=== PATIENT | female | born 1975 | race Caucasian/White ===

== ENCOUNTER 2022-03-19 15:11 | Outpatient (CLI) | payer OTHER, SELFPAY ==
--- NOTE | ~2022-03-19 | MM_ITS ---
EXAMINATION: MM screening bell BI w froylan HISTORY: Screening mammogram TECHNIQUE: Craniocaudal and mediolateral oblique 3-D tomosynthesis images were obtained and synthetic 2-D images were generated. CAD analysis was submitted and interpreted. COMPARISON: No prior mammogram is available for comparison at this institution. BREAST PARENCHYMAL COMPOSITION: The breasts are heterogeneously dense, which may obscure small masses . FINDINGS: There is no suspicious mass, calcification, or architectural distortion to suggest malignan cy in either breast. IMPRESSION: 1. No mammographic evidence of malignancy. 2. Recommend routine screening mammography in one year. BI-RADS Category 1: Negative Reviewed, dictated and finalized at location A.
== END 2022-03-19 15:12 | disposition home or self-care (01) ==
PROVIDERS: PCP Emergency Medicine; Visit Provider Emergency Medicine
DX: Z12.31 Encounter for screening mammogram for malignant neoplasm of breast (principal)
CPT/HCPCS: 77063; 77067

== ENCOUNTER 2024-01-16 10:33 | Outpatient (CLI) | payer OTHER, SELFPAY ==
--- NOTE | ~2024-01-16 | MMUS_ITS ---
EXAMINATION: MM diagnostic [facility] BI w froylan, US breast BI complete HISTORY: Diffuse breast tenderness TECHNIQUE: Additional 3-D tomosynthesis images of the breasts were performed and synthetic 2-D images were generated. CAD analysis was submitted and interpreted. High resolution bilateral complete breas t ultrasound was performed. COMPARISON: 03/19/2022 BREAST PARENCHYMAL COMPOSITION: Dense: The breasts are extremely dense, which lowers the sensitivity of mammography. FINDINGS: MAMMOGRAPHIC FINDINGS: There are no suspicious masses, calcifications or architectural distortion in either breast to sugges t malignancy. ULTRASOUND: Complete bilateral US of all 4 quadrants of the breasts and retroareolar region was reviewed. Right breast: Normal heterogeneous echotexture without focal mass. Left breast: At 9:00, 7 cm from the nipple there is a irregular shaped hypoechoic mass with some angu lar margins measuring 10 x 6 x 6 mm. There is mixed posterior attenuation. There is marginal vascular ity. IMPRESSION: 1. Irregular shaped left breast mass at 9:00, 7 cm from the nipple. 2. Ultrasound-guided left breast biopsy recommended. BI-RADS CATEGORY 4-SUSPICIOUS ABNORMALITY Reviewed, dictated and finalized at location B. IMPRESSION: 1. Irregular shaped left breast mass at 9:00, 7 cm from the nipple. 2. Ultrasound-guided left breast biopsy recommended. BI-RADS CATEGORY 4-SUSPICIOUS ABNORMALITY
== END 2024-01-16 10:34 | disposition home or self-care (01) ==
LOC: ANHIMG 10:41
PROVIDERS: PCP Emergency Medicine; Visit Provider Nurse Practitioner Family
DX: N60.12 Diffuse cystic mastopathy of left breast (principal); N60.11 Diffuse cystic mastopathy of right breast; R92.8 Other abnormal and inconclusive findings on diagnostic imaging of breast
CPT/HCPCS: 76641; 77062; 77066; G0279

== ENCOUNTER 2024-02-17 06:35 | Outpatient (CLI) | payer OTHER, SELFPAY ==
--- NOTE | ~2024-02-17 | MR_ITS ---
MR breast BI wo/w con 02/17/2024 08:11 CDT INDICATION: Left breast mass seen on prior examination. TECHNIQUE: MRI of the breasts perform using standard protocol pre-and post IV contrast with the follo wing sequences: Axial T2 STIR, axial T1, axial vibrant T1 with fat suppression precontrast and multip hasic postcontrast. Cc of MultiHance administered intravenously. COMPARISON: Mammogram and ultrasound dated 01/16/2024 FINDINGS: There are no abnormalities on the precontrast sequences. There is minimal background parenc hymal enhancement. No enhancing lesions following contrast administration. No areas of enhancement meeting threshold criteria on CAD analysis. No evidence of signal abnormalities in the axillary or i nternal mammary node distributions. LEFT BREAST: No signal abnormalities on precontrast sequences. There is minimal background parenchym al enhancement. Postcontrast images demonstrate a mass in the lower inner quadrant of the left breast at approximately 8:00 posteriorly measuring 1.6 x 1.3 x 0.9 cm with slightly irregular margins and o shyam configuration. There is heterogeneous rapid washout enhancement with internal septation. This cor responds to the finding on recent ultrasound examination. There is a small adjacent satellite nodule measuring approximately 4 mm with rapid washout enhancement which may represent an involved lymph nod e. IMPRESSION: 1: Right breast: Negative. No evidence of malignancy. BI-RADS category 1. Recommend annual mammo graphy follow-up. 2: Left breast: Suspicious left breast masses, dominant mass measuring 1.6 cm at 8:00 posteriorly wi th rapid washout enhancement. Ultrasound-guided left breast biopsy recommended. BI-RADS CATEGORY 4-SUSPICIOUS ABNORMALITY Reviewed, dictated and finalized at location B. IMPRESSION: 1: Right breast: Negative. No evidence of malignancy. BI-RADS category 1. Recommend annual mammography follow-up. 2: Left breast: Suspicious left breast masses, dominant mass measuring 1.6 cm at 8:00 posteriorly with rapid washout enhancement. Ultrasound-guided left rell st biopsy recommended. BI-RADS CATEGORY 4-SUSPICIOUS ABNORMALITY
== END 2024-02-17 06:36 | disposition home or self-care (01) ==
PROVIDERS: Visit Provider Surgery
DX: R92.8 Other abnormal and inconclusive findings on diagnostic imaging of breast (principal); R92.343 Mammographic extreme density, bilateral breasts; Z12.39 Encounter for other screening for malignant neoplasm of breast; N63.20 Unspecified lump in the left breast, unspecified quadrant
CPT/HCPCS: 77049; A9577; C8908

== ENCOUNTER 2024-03-24 07:55 | Outpatient (CLI) | payer OTHER, SELFPAY ==
--- NOTE | ~2024-03-24 | MMUS_ITS ---
MM post biopsy diagnostic LT, US breast biopsy LT w image EXAMINATION: US GUIDED NEEDLE BIOPSY WITH VACUUM ASSISTANCE DATE: 03/24/2024 10:36 CDT INDICATION: Left breast mass seen on prior examination. Ultrasound-guided core biopsy is requested t o evaluate for malignancy. BREAST PARENCHYMAL COMPOSITION: Dense: The breasts are extremely dense, which lowers the sensitivity of mammography. TECHNIQUE AND FINDINGS: The risks and potential benefits of the procedure were discussed with the patient, and written inform ed consent was obtained. After sterile preparation of the left breast, 1% lidocaine was utilized for local anesthesia. 1% lidocaine with epinephrine was used for deep anesthesia. A 10G vacuum-assisted biopsy gun needle was advanced through to the outer edge of the region of inter est from a medial approach utilizing sonographic guidance. A total of 4 tissue core samples were obt ained through the lesion. An Inrad tissue marker clip was then placed at the biopsy site. Hemostasis was achieved. The patient tolerated procedure well and there was no evidence of immediate complication. The patien t was given verbal instructions partly is from the department. Left/right breast mammograms to [facility] ent tissue marker clip placement. The tissue samples were submitted to surgical pathology for histolo gic analysis. IMPRESSION: 1. Successful ultrasound-guided vacuum-assisted biopsy of left breast mass. Post biopsy mammogram do es not demonstrate the tissue marker, possibly due to posterior medial location of the mass near the chest wall or to possible nondisplaced deployment of the tissue marker. Please refer to pathology rep ort for histologic analysis. Reviewed, dictated and finalized at location B. IMPRESSION: 1. Successful ultrasound-guided vacuum-assisted biopsy of left breast mass. Po st biopsy mammogram does not demonstrate the tissue marker, possibly due to pos terior medial location of the mass near the chest wall or to possible nondispla piero deployment of the tissue marker. Please refer to pathology report for histo logic analysis.
== END 2024-03-24 07:56 | disposition home or self-care (01) ==
PROVIDERS: Visit Provider Physician Assistant Surgical
DX: C50.912 Malignant neoplasm of unspecified site of left female breast (principal); R92.343 Mammographic extreme density, bilateral breasts; R92.8 Other abnormal and inconclusive findings on diagnostic imaging of breast
CPT/HCPCS: 19083; 77065; 88305; 88360; A4648

== ENCOUNTER 2024-04-09 09:32 | Outpatient (CLI) | payer OTHER, SELFPAY ==
--- NOTE | ~2024-04-09 | US_ITS ---
US breast LT limited 04/09/2024 09:59 Indication: Intraductal carcinoma of the left breast. Postbiopsy bleeding. Procedure: High-resolution Limited ultrasound of the left breast Comparison: Ultrasound dated 03/24/2024 Findings: In the area of previous biopsy at 9:00, 7 cm from the nipple there is a heterogeneous fluid collection measuring 2.7 x 1.9 x 1.2 cm, likely postbiopsy hematoma/seroma. There are are low level internal echoes. No internal vascularity. Impression: 1: Minimally complicated fluid collection left breast at 9:00, 7 cm from the nipple measuring 2.7 x 1 .5 x 1.2 cm, likely hematoma/seroma. BI-RADS CATEGORY 3-PROBABLY BENIGN FINDING RECOMMENDATION: Limited follow-up ultrasound in 3 months recommended. Reviewed, dictated and finalized at location B. Impression: 1: Minimally complicated fluid collection left breast at 9:00, 7 cm from the ni pple measuring 2.7 x 1.5 x 1.2 cm, likely hematoma/seroma. BI-RADS CATEGORY 3-PROBABLY BENIGN FINDING RECOMMENDATION: Limited follow-up ultrasound in 3 months recommended.
== END 2024-04-09 09:33 | disposition home or self-care (01) ==
LOC: ANHIMG 09:34
PROVIDERS: Visit Provider Surgery
DX: C50.912 Malignant neoplasm of unspecified site of left female breast (principal); R92.8 Other abnormal and inconclusive findings on diagnostic imaging of breast
CPT/HCPCS: 76642

== ENCOUNTER 2024-04-23 07:26 | Outpatient (CLI) | payer OTHER, SELFPAY | END 2024-04-23 07:27 | disposition home or self-care (01) | LOC: ANHSURGERY 07:31 | PROVIDERS: Visit Provider Surgery | DX: Z01.818 Encounter for other preprocedural examination (principal); D05.12 Intraductal carcinoma in situ of left breast | CPT/HCPCS: 36415; 86850; 86900; 86901 ==

== ENCOUNTER 2024-04-27 17:38 | Observation (INO) | payer OTHER, SELFPAY ==
[2024-04-21 13:15] VITALS: BMI 20.1
--- NOTE | 2024-04-21 13:22 | PC.NURSE ---
Addendum entered by Racheal Magallanes RN 04/21/24 13:36: PT INFORMED: NO FOOD AFTER MIDNIGHT, UP TO 20 OUNCES OF CLEAR LIQUIDS FROM MIDNIGHT UNTIL 5AM. Original Note: Report to the Outpatient Waiting Room, entrance under the green pavilion located off [facility], at time 1100__ on date _04/27/24_. Planned Procedure Time: _1300.? Time changes happen often and if your time is changed the preop area will call you the afternoon before. - You and your visitor will be asked to self-screen and do not enter if you have any COVID symptoms. Please call surgeon if you need to reschedule. - A mask is optional within the hospital at this time. Patients may have clear liquids (water, carbonated beverages, clear teas, apple juice) until 3 hours prior to surgery with a maximum of 20 ounces. - No food from midnight until time of surgery and no smoking - Infants may have breast milk until 4 hours before surgery, infant formula 6 hours prior to surgery. - Children will be allowed to drink immediately following surgery.? If applicable, please bring a bottle or sippy cup to assist with drinking. Juice, water, soda, and popsicles are readily available.? For infants on formula, please bring formula the day of surgery.? Pacifiers are allowed. Take only the following medications with a SIP of water on the morning of surgery: ___NONE DO NOT STOP ANY OF YOUR OTHER PRESCRIPTION MEDICATIONS PRIOR TO SURGERY EXCEPT THE FOLLOWING Medications to discontinue per physician MULTIVITAMIN Date to take last dose 04/24/24 Please no make-up, nail swedish, hairspray, perfume, deodorant, or body powder the day of surgery.? No jewelry (including any body piercings) or valuables the day of surgery, leave them at home.? Please take a shower or bath the night before, or the morning of, surgery with an antibacterial soap.? Wear comfortable, loose fitting clothing.? Children are encouraged to wear pajamas. - Jewelry must be removed prior to entering the operating room.? Rings and piercings that are not removed may be cut off. - The hospital will not accept responsibility for valuables.? - Please leave all valuables, including medications, at home the day of surgery. If you are going home after surgery, a licensed cart driver must drive you home.? - NO public transportation without another adult if you receive anesthesia. - We recommend that an adult stay with you for 24 hours following discharge. - We also recommend that you do not drive, make important decision, drink alcoholic beverages, or take any drugs that were not prescribed by your health care provider for at least 24 hours after your discharge time. For Pediatric surgeries, we recommend two adults accompany the child home. Follow any additional instructions given to you from your surgeon. Telephone instructions given to ___PATIENT_and asked if any additional questions and then verbalized understanding. Patient advised to call surgeon office or pre surgery nurse liaison [phone] if any additional questions.
--- NOTE | 2024-04-26 19:42 | P.PNAN_ITS ---
Anes - Initial Pre Proc Eval Procedure: Operation Date: 04/27/24 13:00 Proposed Procedures p Left Total Mastectomy, Right Prophylactic Total Mastectomy, Left [facility] Lymph Node Biopsy with Lymphoseek, Possible Methylene Blue Injection, - Sharonda Padilla MD s Bilateral Breast Immediate Prepectoral Reconstruction with Silicone Implants and Acellular Dermal Matrix, Possible Tissue Wait Staff Placement - Deandre Garcia MD Date/Time: 04/26/24 19:42 Surgeon: Sharonda Padilla MD Pre Op Diagnosis: intraductal CA insitu left breast Patient Data Age: 48 Gender: F Height: 1.73 m Weight: 60 kg Allergies Allergy/AdvReac Type Severity Reaction Status Date / Time No Known Allergies Allergy Unknown Unverified 04/21/24 13:14 Home Medications Medication Instructions Recorded Confirmed Type multivitamin (Daily Multi-Vitamin 1 tablet PO DAILY 12/10/23 04/21/24 History tablet) spironolactone 25 mg tablet 25 mg PO DAILY 12/10/23 04/21/24 History cephalexin 500 mg capsule 500 mg PO Q8H #21 caps 04/27/24 Rx hydrocodone 5 mg-acetaminophen 325 1 tablet PO Q6H PRN pain #16 tabs 04/27/24 Rx mg tablet Patient hx anesthesia problems: none Family hx anesthesia problems: none Results Review: All pre-operative results and documents have been reviewed as part of the pre- operative evaluation. [facility] Past Medical History Medical History Allergies Seasonal allergies Surgical History Surgical History H/O shoulder surgery No significant past surgical history Family History Family History Grandparent Breast cancer Social History Social History Social History: Caffeine- coffee/diet soda Smoking status: Never smoker Alcohol intake: current Drinks per week: 2 Alcohol use details: occasionally Substance use: never Substance use type: does not use Do You Feel Safe in your Home?: Yes Lack of Transportation: No Lack of Food: Never True Current Housing: I Have Housing Concerned About Future Housing: No Difficulty Paying Gas/Electric Bills: No Difficulty Paying for Meds: No Currently Unemployed: No Education: High School Diploma/GED Difficulty w/ Childcare or Family Care: No Living arrangements: with family Venita Alcaraz Final PreProcedure Day of Procedure 04/26/24 19:42 Results Review: All pre-operative results and documents have been reviewed as part of the pre- operative evaluation. Informed Consent: The patient's anesthetic plan and its attendant risks and benefits were discussed with the patient/family/POA. Questions were solicited and answers provided to the satisfaction of the patient/family/POA.
[2024-04-27] VITALS (10 sets, daily range): BP systolic 98–125; BP diastolic 50–71; PULSE 73–88; RESP 10–21; TEMP 36.8–37.3; O2SAT 92–100; BMI 20.6
--- NOTE | ~2024-04-27 | NM_ITS ---
EXAMINATION: NM sentinel node inject only DATE: 04/27/2024 12:15 INDICATION: Left breast cancer TECHNIQUE: 1.034 mCi Tc-99m filtered sulfur colloid was injected in four aliquots in the anterior lydia ast near the areola. No images were obtained. IMPRESSION: 1. Left breast sentinel lymph node radiopharmaceutical injection. Reviewed, dictated and finalized at location A.
[2024-04-27] MEDS: LIDOCAINE/PRILOCAINE CREAM 2.5-2.5% TUBE 1 EACH TOPICAL (11:00)
--- NOTE | 2024-04-27 11:06 | WPDHPUPDATE1 ---
History and Physical Update Update Date/Time: 04/27/24 11:06 - Left total mastectomy, right prophylactic mastectomy, left sentinel lymph node biopsy with Lymphoseek and possible methylene blue injection, as well as immediate reconstruction with Plastic surgery History and Physical has been reviewed, including an updated exam of the patient. There are NO changes in the patient's condition. Risks, benefits, and alternatives have been discussed and questions answered. Patient agrees to proceed with procedure.
[2024-04-27 11:15] LABS: BEDSIDEPREGUCG Negative (Negative)
[2024-04-27] MEDS: LACTATED RINGERS 1,000 ML 30 ML IV CONT ×2 (11:15→15:48)
[2024-04-27] MEDS: ACETAMINOPHEN 500 MG TABLET 1000 MG PO (11:24)
--- NOTE | 2024-04-27 11:26 | WPDHPUPDATE1 ---
History and Physical Update Update Date/Time: 04/27/24 11:26 Patient seen and examined in pre-operative holding area. No interval change in medical history or symptoms. Patient remembers previous discussion of benefits and alternatives to procedure. Continues to desire to proceed with bilateral breast reconstruction with silicone implants and acellular dermal matrix at time of mastectomy possible tissue accountant property placement . I reviewed the risks including but not limited to bleeding ,infection, asymmetry, undesireable cosmetic appearance, partial/total skin loss, no change or worsening of symptoms, change in sensation, device failure, capsular contracture. I discussed the possible use of assistants and their level of participation in the case. Patient stated understanding and signed the consent form wishing to proceed
--- NOTE | 2024-04-27 11:28 | W.PM.PROC2 ---
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 She was taken back to the operating room and placed on the table in the supine position. Time-out was performed with Anesthesia, surgeons, and staff agreeing on patient's name, site, and surgery to be performed. SCDs were placed on the lower extremities and inflated. Antibiotics were given IV. After general anesthesia was administered the breasts were prepped and draped in the usual sterile fashion. First we took our attention to the right breast where I designed an ellipsoid incision encompassing the nipple-areolar complex extending medially and laterally. Care was then given to Dr. Padilla proceeded with performing the right mastectomy with my assistance and dictated separately. After the mastectomy was completed I irrigated with antibiotic irrigation and achieved hemostasis with Bovie cautery. I proceeded with sewing in a piece of large contoured AlloDerm along the inframammary fold and anterior axillary line with 2-0 Vicryl suture. Various sizes were attempted but the 275 cc moderate profile Sizer appeared to be the best option for the patient's reconstructive goals. A 10 flat JASPER was placed along the inframammary fold and an on Q pump catheter was placed along the superior aspect of the right breast cavity. I irrigated again with antibiotic irrigation the skin was prepped with Betadine and fresh towels were placed down. We changed our gloves and rinse instruments an antibiotic irrigation after removing the Sizer. I then proceeded with taking a Natrelle SCM-275 implant serial [id number] directly from the package after rinsing it in antibiotic irrigation and placing it in the right breast pocket beneath the AlloDerm in appropriate position and then closed the dermis with 3-0 Vicryl suture. 4-0 Monocryl was used for subcuticular closure. The skin flaps appeared viable with good cap refill. 7 cc of 1% lidocaine with epinephrine and 0.5% Marcaine plain were injected to the right breast on Q catheter for loading dose. The drain was hooked to bulb suction. Next attention was taken to the left breast where similar incision pattern was designed. Dr. Padilla proceeded with performing left mastectomy with my assistance as well and dictated separately. After the mastectomy was completed Dr. Padilla performed the left axillary lymph node biopsy. I irrigated with antibiotic irrigation and achieved hemostasis with bovie cautery. I proceeded with sewing in a another piece of large contoured perforated AlloDerm along the inframammary fold and anterior axillary line with 2-0 Vicryl suture. The 275cc sizer was placed noting reasonable symmetry between the reconstructed right breast. The Sizer was removed. A 10 Portuguese JASPER was placed along the inframammary fold. The on Q pump catheter was placed along the superior aspect of the left breast pocket. I irrigated once more with antibiotic irrigation. The skin was prepped with Betadine and fresh towels were placed down. We changed our gloves and rinsed instruments and antibiotic irrigation. I proceeded with taking another Natrelle SCM-275 implant serial [id number] directly from the package after rinsing it in antibiotic irrigation and placing in the left breast pocket under the AlloDerm in its appropriate orientation. The skin was then closed with 3-0 Vicryl for dermis and 4-0 Monocryl for subcuticular closure. 7 cc of 1% lidocaine with epinephrine and 0.5% Marcaine plain was injected through the on Q catheter for initial loading dose and the drain was hooked to bulb suction. The sk
--- NOTE | 2024-04-27 12:15 | WPDANESEPPF ---
Anes - Initial Pre Proc Eval Procedure: Operation Date: 04/27/24 13:00 Proposed Procedures p Left Total Mastectomy, Right Prophylactic Total Mastectomy, Left [place] Lymph Node Biopsy with Lymphoseek, Possible Methylene Blue Injection, - Sharonda Padilla MD s Bilateral Breast Immediate Prepectoral Reconstruction with Silicone Implants and Acellular Dermal Matrix, Possible Tissue Quarry Supervisor Dimension Stone Placement - Deandre Garcia MD Date/Time: 04/27/24 12:15 Surgeon: Sharonda Padilla MD Pre Op Diagnosis: intraductal CA insitu left breast Patient Data Age: 48 Gender: F Height: 1.73 m Weight: 61.6 kg Last Vital Signs Temp 36.8 C 04/27/24 11:09 Pulse 73 04/27/24 11:09 Resp 16 04/27/24 11:09 BP 123/62 04/27/24 11:09 Pulse Ox 98 04/27/24 11:09 O2 Del Method Room Air 04/27/24 11:09 Allergies Allergy/AdvReac Type Severity Reaction Status Date / Time No Known Allergies Allergy Unknown Unverified 04/21/24 13:14 Home Medications Medication Instructions Recorded Confirmed Type multivitamin (Daily Multi-Vitamin 1 tablet PO DAILY 12/10/23 04/21/24 History tablet) spironolactone 25 mg tablet 25 mg PO DAILY 12/10/23 04/21/24 History Laboratory Tests 04/27/24 11:09 POC Urine HCG, Qual Negative (Negative) Patient hx anesthesia problems: none Family hx anesthesia problems: none Results Review: All pre-operative results and documents have been reviewed as part of the pre-operative evaluation. [facility] Past Medical History Medical History Allergies Seasonal allergies Surgical History Surgical History H/O shoulder surgery No significant past surgical history Family History Family History Grandparent Breast cancer Social History Social History Social History: Caffeine- coffee/diet soda Smoking status: Never smoker Alcohol intake: current Drinks per week: 2 Alcohol use details: occasionally Substance use: never Substance use type: does not use Do You Feel Safe in your Home?: Yes Lack of Transportation: No Lack of Food: Never True Current Housing: I Have Housing Concerned About Future Housing: No Difficulty Paying Gas/Electric Bills: No Difficulty Paying for Meds: No Currently Unemployed: No Education: High School Diploma/GED Difficulty w/ Childcare or Family Care: No Living arrangements: with family Anes - Eval Final PreProcedure Day of Procedure 04/27/24 12:15 Patient weight: normal Heart: regular rate and rhythm Lungs: clear to auscultation Airway: Mallampati scale class II Neurological: alert and oriented Last oral intake: >/= 8 hours ASA classification: II Emergent: no Anesthetic plan: proceed Anesthesia type and monitoring: general Results Review: All pre-operative results and documents have been reviewed as part of the pre-operative evaluation. Informed Consent: The patient's anesthetic plan and its attendant risks and benefits were discussed with the patient/family/POA. Questions were solicited and answers provided to the satisfaction of the patient/family/POA.
--- NOTE | 2024-04-27 12:17 | WPDANESEPPF ---
Anes - Initial Pre Proc Eval Procedure: Operation Date: 04/27/24 13:00 Proposed Procedures p Left Total Mastectomy, Right Prophylactic Total Mastectomy, Left [place] Lymph Node Biopsy with Lymphoseek, Possible Methylene Blue Injection, - Sharonda Padilla MD s Bilateral Breast Immediate Prepectoral Reconstruction with Silicone Implants and Acellular Dermal Matrix, Possible Tissue Generation Technologist Placement - Deandre Garcia MD Date/Time: 04/27/24 12:17 Surgeon: Sharonda Padilla MD Pre Op Diagnosis: intraductal CA insitu left breast Patient Data Age: 48 Gender: F Height: 1.73 m Weight: 61.6 kg Last Vital Signs Temp 36.8 C 04/27/24 11:09 Pulse 73 04/27/24 11:09 Resp 16 04/27/24 11:09 BP 123/62 04/27/24 11:09 Pulse Ox 98 04/27/24 11:09 O2 Del Method Room Air 04/27/24 11:09 Allergies Allergy/AdvReac Type Severity Reaction Status Date / Time No Known Allergies Allergy Unknown Unverified 04/21/24 13:14 Home Medications Medication Instructions Recorded Confirmed Type multivitamin (Daily Multi-Vitamin 1 tablet PO DAILY 12/10/23 04/21/24 History tablet) spironolactone 25 mg tablet 25 mg PO DAILY 12/10/23 04/21/24 History Laboratory Tests 04/27/24 11:09 POC Urine HCG, Qual Negative (Negative) Patient hx anesthesia problems: none Family hx anesthesia problems: none Results Review: All pre-operative results and documents have been reviewed as part of the pre-operative evaluation. [facility] Past Medical History Medical History Allergies Seasonal allergies Surgical History Surgical History H/O shoulder surgery No significant past surgical history Family History Family History Grandparent Breast cancer Social History Social History Social History: Caffeine- coffee/diet soda Smoking status: Never smoker Alcohol intake: current Drinks per week: 2 Alcohol use details: occasionally Substance use: never Substance use type: does not use Do You Feel Safe in your Home?: Yes Lack of Transportation: No Lack of Food: Never True Current Housing: I Have Housing Concerned About Future Housing: No Difficulty Paying Gas/Electric Bills: No Difficulty Paying for Meds: No Currently Unemployed: No Education: High School Diploma/GED Difficulty w/ Childcare or Family Care: No Living arrangements: with family Anes - Eval Final PreProcedure Day of Procedure 04/27/24 12:17 Results Review: All pre-operative results and documents have been reviewed as part of the pre-operative evaluation. Informed Consent: The patient's anesthetic plan and its attendant risks and benefits were discussed with the patient/family/POA. Questions were solicited and answers provided to the satisfaction of the patient/family/POA.
[2024-04-27] MEDS: ceFAZolin 2 GM/D5W 50 ML 2 GM/50 ML BAG IVPB (12:33)
[2024-04-27] MEDS: NACL 0.9% IRRIG POUR BOTTLE 1,000 ML, GENTAMICIN SULFATE INJ 160 MG, ceFAZolin 2 GM IRRIGATION (13:01)
[2024-04-27] MEDS: BUPivacaine 0.5% ON-Q PUMP 335 ML INTRADERM (13:03)
[2024-04-27] MEDS: BUPivacaine HCL 0.5% 10 ML AMP 20 ML INFILTRATE (13:04)
[2024-04-27] MEDS: LIDO 1%/EPINEPHRINE 1:100,000 50 ML VIAL 20 ML INFILTRATE (13:05)
--- NOTE | 2024-04-27 15:42 | W.PM.PROC2 ---
Procedure Note - Detailed Date of Procedure 04/27/24 Pre-op Diagnosis Left breast IDC, ER+, AL+, HER2 negative Post-op Diagnosis Same Procedure Performed 1. Left total mastectomy 2. Right prophylactic total mastectomy 3. Left axillary lymph node biopsy Surgeon Sharonda Padilla MD Director Of Clinical Education Erma Irby PA-C Anesthesia General Description of Procedure Patient was taken to Nuclear Medicine, for lymphoseek injection which was performed by the Radiologist. She was then brought to the operating room suite. She was placed supine on the operating table sequential compression devices were applied. General endotracheal anesthesia was induced without difficulty. The bilateral chest area were prepped and draped in a sterile fashion. Attention was then turned to the right prophylactic side. Dr. Garcia had already previously marked incisions which included an elliptical incision encompassing the nipple-areolar complex, and dissection was then carried out in the thin areolar tissue between the subcutaneous and the breast tissue, superiorly to the? inferior border of the clavicle, medial to the lateral aspect of the sternal border, laterally to the latissimus dorsi, and inferior to the inframammary fold down to the muscle. The? breast tissue along with the pectoralis fascia was then carefully dissected off the pectoralis muscle posteriorly.? Once the entire breast was excised, it was oriented with a short stitch superior and a long stitch lateral and sent to pathology as a fresh specimen. The cavity was irrigated and hemostasis was assured. Attention was then turned to the left axilla. The Neoprobe was used to scan the axilla for an area of high radioactivity. A small incision was made overlying this area, and dissection was carried down through the subcutaneous tissue and the clavipectoral fascia was opened. Although I was able to identify an area of high radioactivity, no lymph node tissue was found in the this area. There were no identifiable palpable lymph nodes in this area. Decision was then made to proceed with the mastectomy portion of the case and search for the lymph node from the mastectomy incision. Attention was then turned to the left breast. A similar elliptical incision was made encompassing the nipple areola complex and dissection was carried down through the subcutaneous tissue into the breast tissue. Dissection was then performed in the thin areolar tissue between the subcutaneous and the breast tissue, superiorly to the? inferior border of the clavicle, medial to the lateral aspect of the sternal border, laterally to the latissimus dorsi, and inferior to the inframammary fold down to the muscle. The? breast tissue along with the pectoralis fascia was then carefully dissected off the pectoralis muscle posteriorly.?Once the entire breast was excised, it was oriented with a short stitch superior and a long stitch lateral and sent to pathology as a fresh specimen. The cavity was irrigated and hemostasis was assured. The Neoprobe was again used to scan the axilla from the mastectomy incision and no areas of high radioactivity was identified at this time, indicating that likely the node was removed with the mastectomy/breast specimen. The axillary wound was closely inspected for any abnormal lymph nodes, and again none was identified. A small palpable soft nodule was noted at the area of the original high radioactivity, possibly representing a very small lymph node, and this was excised and sent to pathology as permanent specimen. The wound was irrigated with saline hemostasis was assured.The case was then turned over to Dr. Garcia for immediate reconstruction with bilateral silicone implants, please refer to his procedure note for further details. All needles, instruments, and sponge counts were correct as reported by the operating room staff. Patient tolerated the procedure well with no immediate complications. Erma Irby PA-C was presented and ass
[2024-04-27] MEDS: fentaNYL CITRATE INJ (*CRX) 100 MCG/2 ML VIAL 25 MCG IV PUSH ×2 (16:15→16:33)
[2024-04-27] MEDS: ONDANSETRON INJ 4 MG/2 ML VIAL IV PUSH (16:34)
[2024-04-27] MEDS: diphenhydrAMINE HCl INJ 50 MG/ML VIAL 12.5 MG IV PUSH (16:42)
--- NOTE | 2024-04-27 19:24 | OBPPTRN ---
1757 Patient transferred to post room #[id number] via stretcher. Support person present. Oriented to unit, room, information board, admission packet and security measures. Patient verbalizes understanding.
[2024-04-27] MEDS: DOCUSATE SODIUM 100 MG CAPSULE PO (21:07)
[2024-04-27] MEDS: LACTATED RINGERS 1,000 ML 100 ML IV CONT (21:08)
[2024-04-27] MEDS: CEPHALEXIN 500 MG CAPSULE PO (21:08)
[2024-04-27] MEDS: ACETAMINOPHEN 325 MG TABLET 650 MG PO (21:13)
[2024-04-28 03:40] VITALS: BP 89/52; PULSE 75; RESP 20; TEMP 37; O2SAT 99
[2024-04-28] MEDS: ACETAMINOPHEN 325 MG TABLET 650 MG PO ×2 (03:40→09:53)
[2024-04-28] MEDS: HYDROcodone/acetaminophen (*CRX) 10-325 MG TABLET 1 TAB PO ×2 (03:48→08:45)
[2024-04-28 07:35] VITALS: BP 93/54; PULSE 70; RESP 18; TEMP 37.1; O2SAT 98
[2024-04-28] MEDS: DOCUSATE SODIUM 100 MG CAPSULE PO (08:45)
[2024-04-28] MEDS: CEPHALEXIN 500 MG CAPSULE PO (08:45)
[2024-04-28] MEDS: MULTIVITAMINS THERAPEUTIC TAB (*BKC) 1 TABLET PO (08:45)
--- NOTE | 2024-04-28 10:15 | PM.PNGS ---
Progress Note: A&P Assessment and Plan (1) Ductal carcinoma in situ (DCIS) of left breast: Code(s): D05.12 - Intraductal carcinoma in situ of left breast Status: Acute (2) Invasive ductal carcinoma of left breast: Code(s): C50.912 - Malignant neoplasm of unspecified site of left female breast Status: Acute Plan 48 y/o female with L breast IDC, ER+, MI+, HER2-, recovering well POD#1 s/p B TM with L SLNBx and B prepec silicone implant immediate reconstruction with ADM. reviewed impression and healing expectations. reviewed signs/symptoms of concern. reviewed dressing/medication/drain instructions. pt voiced understanding and agreement. Plan 1) PO pain Rx 2) cephalexin BID x 1 week 3) drain care 4) dc home 5) breast surg follow up 2 weeks 6) plas follow up 1 week Subjective Subjective Date/Time Seen: 04/28/24 7:55 Interval history: pt seen at bedside. no concerns overnight. pain well managed with PO med. Denies fever/chills, bleeding/redness, SOB, chest pain, BENOIT, N/V/D, dizziness, BLE pain, interval change in breast size. ambulating and voiding without issue. Exam Narrative: sitting comfortably in bed Const: General: cooperative, healthy appearing and comfortable Orientation/consciousness: patient oriented x3 Eyes: Other: sclera anicteric Chest: Other: surgical bra c/d/i, tegaderm/gauze dressing c/d/i. bilateral implants in place, symmetric medial border and IMF. mastectomy flaps wwp, cap refil <2 sec. drains maintaining neg pressure, minimal dark sanguinous drainage. on-q in place. Resp: Effort & Inspection: normal respiratory effort Cardio: Jugular venous distension: no JVD Rate: regular rate Rhythm: regular rhythm GI: GI Palp: No abdominal tenderness and Yes Soft to palpation Objective Data Vital Signs Vital Signs: Vital Signs - 24 hr 04/27/24 11:09 04/27/24 16:01 04/27/24 16:16 Temperature 36.8 C 36.9 C Pulse Rate 73 85 83 Respiratory Rate 16 10 L 15 Blood Pressure 123/62 117/58 L 120/58 L Pulse Oximetry 98 100 92 Oxygen Delivery Room Air Simple Face Mask Room Air Oxygen Flow Rate 10 04/27/24 16:31 04/27/24 16:45 04/27/24 17:00 Temperature Pulse Rate 88 87 82 Respiratory Rate 14 14 21 H Blood Pressure 120/57 L 124/57 L 125/57 L Pulse Oximetry 96 95 95 Oxygen Delivery Room Air Room Air Room Air Oxygen Flow Rate 04/27/24 17:15 04/27/24 17:30 04/27/24 18:16 Temperature 36.9 C Pulse Rate 82 85 86 Respiratory Rate 12 15 18 Blood Pressure 113/50 L 121/60 115/71 Pulse Oximetry 94 96 96 Oxygen Delivery Room Air Room Air Oxygen Flow Rate 04/27/24 23:21 04/28/24 03:40 04/28/24 07:35 Temperature 37.3 C 37.0 C 37.1 C Pulse Rate 81 75 70 Respiratory Rate 20 20 18 Blood Pressure 98/56 L 89/52 L 93/54 L Pulse Oximetry 99 99 98 Oxygen Delivery Oxygen Flow Rate 04/28/24 07:20 Temperature Pulse Rate Respiratory Rate Blood Pressure Pulse Oximetry Oxygen Delivery Room Air Oxygen Flow Rate Intake/Output Intake/Output: Intake & Output 04/25/24 04/26/24 04/27/24 04/28/24 23:59 23:59 23:59 23:59 Intake Total 500 240 Output Total 295 110 Balance 205 130 Meds/Results Medications: Active Medications Generic Name Dose Route Start Last Admin Trade Name Freq PRN Reason Stop Dose Admin Acetaminophen 650 mg 04/27/24 18:00 04/28/24 09:53 Acetaminophen 325 Mg Tablet PO 650 mg Q6HR REMY Administration Hydrocodone Bitart/Acetaminophen 1 tab 04/27/24 17:38 Hydrocodone/Acetaminophen (*Crx) 5-325 Mg Tablet PO Q4H PRN Pain Rated 4-6 Hydrocodone Bitart/Acetaminophen 1 tab 04/27/24 17:38 04/28/24 08:45 Hydrocodone/Acetaminophen (*Crx) 10-325 Mg Tablet PO 1 tab Q4H PRN Administration Pain Rated 7-10 Cephalexin HCl 500 mg 04/27/24 21:00 04/28/24 08:45 Cephalexin 500 Mg Capsule PO 500 mg Q12HR REMY Administration Diphenhydramine HCl 25 mg 04/11
== END 2024-04-28 11:35 | disposition home or self-care (01) ==
LOC: ANHOB2 17:45
PROVIDERS: Plastic Surgery; Admitting Provider Surgery; Visit Provider Surgery
PROC: (CPT 19303; principal; 2024-04-27 13:00)
PROC: (CPT 19340; 2024-04-27 13:00)
DX: D05.12 Intraductal carcinoma in situ of left breast (principal); Z17.0 Estrogen receptor positive status [ER+]
CPT/HCPCS: 19303; 19340; 15777; 38525; 36415; 38792; 86850; 86900; 86901; 88307; A9270; A9520; G0378; J0665; J0690; J1100; J1170; J1200; J1580; J2250; J2405; J2704; J3010; J7120; Q4116; Q9968

== ENCOUNTER 2024-08-27 08:14 | Outpatient (CLI) | payer OTHER, SELFPAY ==
--- NOTE | ~2024-08-27 | US_ITS ---
US breast BI limited 08/27/2024 09:02 Indication: Diffuse cystic mastopathy of the right breast. Procedure: Complete bilateral breast ultrasound including all 4 quadrants in the subareolar locations Comparison: Comparison to multiple prior studies sequentially, with oldest reviewed study dated 04/2022. Findings: Right breast: At 9-10:00 in the area of palpable concern there is an oval shadowing hypoechoic mass m easuring 1.5 cm. Left breast: At 12-2:00 in the area of palpable concern there is an oval hypoechoic 1.5 cm mass with posterior shadowing and parallel orientation. At 1-2:00 in the area of palpable concern there is an o shyam parallel oriented hypoechoic mass with shadowing measuring 1.5 cm. Impression: 1: Abnormal bilateral breast masses. 2: Recommend correlation with MRI of the breasts with contrast. BI-RADS CATEGORY 0 - INCOMPLETE STUDY, NEED ADDITIONAL IMAGING EVALUATION. Reviewed, dictated and finalized at location A. ENSATION SPECIALIST Impression: 1: Abnormal bilateral breast masses. 2: Recommend correlation with MRI of the breasts with contrast. BI-RADS CATEGORY 0 - INCOMPLETE STUDY, NEED ADDITIONAL IMAGING EVALUATION.
--- OUTSIDE RECORDS SUMMARY | 2024-09-02 05:26 | XMS_ITS ---
Care Plan - [facility] Created on: September 02, 2024 MARY SANTANA : 1975 Sex: Female Author Organization [facility] Address [address] [place] [phone] Phone Care Team Providers Care Craft Demonstrator Name Role Phone DAWIT NOYOLA, LAYLA Urias Unavailable [phone]
--- OUTSIDE RECORDS SUMMARY | 2024-09-02 05:26 | XMS_ITS ---
Author Organization [facility] Address [address] [place] [phone] Phone Care Team Providers Care Sql Manager Name Role Phone DAWIT NOYOLA, LAYLA Urias Unavailable [phone] Problems Includes: Active, inactive, and resolved Problems All Visits Onset Date Resolved Date Provider Condition S tatus Ovarian Cyst Left 01/29/2016 NISHANT MENDEZ RN [facility] Active Last Documented On 01/29/2016 11:08AM ; [facility] Note: Unchanged Plan of Treatment Findings Encounter Date Ordered Clinical summary pro vided to patient ENDOMETRIAL BIOPSY with NISHANT HOGAN RN [facility] 02/01/2016 Last Documented On 6 3:51PM ; [facility] Ordered Clinical summary pro vided to patient NEW [employer] SUPERVISOR EXAM with NISHANT HOGAN RN [facility] 01/24/2016 Last Documented On 6 2:16PM ; [facility] Instructions to patient Instructions for patient : B reast Self Exam discussed Last Documented On 8 10:58AM ; [facility] Instructions for patient : B reast Self Exam discussed Last Documented On 7 8:27AM ; [facility] Instructed to call if excess mamie bleeding or abdominal/pelvic pain Last Documented On 6 3:24PM ; [facility] Patient may take Motrin OTC PRN as directed Last Documented On 6 3:24PM ; [facility] Instructions for patient : B reast Self Exam discussed and technique reviewed Last Documented On 6 12:57PM ; [facility] Instructions for patient : p atient is to keep a menstrual diary to help with further evaluation and treatment Last Documented On 6 2:12PM ; [facility] Instructions for patient ER if bleeding through reg. sized pad/tampon < 1 hour Last Documented On 6 2:12PM ; [facility] Instructions for patient ER if dizzy, vomiting or light-headed due to heavy bleeding Last Documented On 6 2:12PM ; [facility] Instructed to call if excess mamie bleeding or abdominal/pelvic pain Last Documented On 6 12:57PM ; [facility] Recommend diet and exercise at least 30 min three times per week Last Documented On 6 12:57PM ; [facility] Education and Decision Aids were provided during visit for: Patient education : Last Documented On 8 10:58AM ; [facility] Patient counseling : Use of oral contraceptives discussed in detail including rare occurrence of heart attack, stroke, and leg clots. Patient understands that smoking increases the risk of serious side effects with any steroid-based contraceptive method Last Documented On 8 11:12AM ; [facility] STD screening offered and de clined Last Documented On 8 10:58AM ; [facility] Patient counseling : Use of oral contraceptives discussed in detail including rare occurrence of heart attack, stroke, and leg clots. Patient understands that smoking increases the risk of serious side effects with any steroid-based contraceptive method Last Documented On 7 8:38AM ; [facility] STD screening offered and de clined Last Documented On 7 8:27AM ; [facility] Patient counseling : Use of oral contraceptives discussed in detail including rare occurrence of heart attack, stroke, and leg clots. Patient understands that smoking increases the risk of serious side effects with any steroid-based contraceptive method Last Documented On 6 3:37PM ; [facility] Patient counseling : Use of oral contraceptives discussed in detail including rare occurrence of heart attack, stroke, and leg clots. Patient understands that smoking increases the risk of serious side effects with any steroid-based contraceptive method Last Documented On 6 3:50PM ; [facility] INFORMED CONSENT DISCUSSION: Endometrial biopsy was discussed in detail including discomfort, insufficient specimen with need to repeat test, and rare incidence of uterine perforation. Patient expressed understanding of the above and consented to the procedure Last Documented On 6 3:24PM ; [facility] Patient Education: Daily concha cium and vitamin D Last Documented On 6 12:57PM ; [facility] Assessments Includes: Assessments for all patient encounters Findings Encounter Date Routine pelvic exam [employer] SUPERVISOR EXAM with ANIYA FREEMAN MD 02/27/2018 Last Documented On 8 11:14AM ; [facility] Routine pelvic exam [employer] SUPERVISOR EXAM with ANIYA FREEMAN MD 02/17/2017 Last Documented On 7 8:39AM ; [facility] Menorrhagia MED CHECK with ANIYA FREEMAN MD 07/26/2016 Last Documented On 6 3:40PM ; [facility] Endometrial polyps CONSULTATION with ANIYA DE LOS SANTOS MD 02/22/2016 Last Documented On 6 3:50PM ; [facility] Menorrhagia CONSULTATION with AINYA FREEMAN MD 02/22/2016 Last Documented On 6 3:50PM ; [facility] Ovarian cyst CONSULTATION with ANIYA FREEMAN MD 02/22/2016 Last Documented On 6 3:50PM ; [facility] Menorrhagia ENDOMETRIAL BIOPSY with NISHANT HOGAN RN [facility] 02/01/2016 Last Documented On 6 3:51PM ; [facility] Cyst on the left ovary PELVIC W/TVT with NISHANT HOGAN RN [facility] 01/26/2016 Last Documented On 6 11:08AM ; [facility] Lump or mass in the right breast [employer]PER[employer] EXAM with NISHANT HOGAN RN [facility] 01/24/2016 Last Documented On 6 2:16PM ; [facility] Menorrhagia NEW [employer] SUPERVISOR EXAM with NISHANT HOGAN RN [facility] 01/24/2016 Last Documented On 6 2:16PM ; [facility] Routine pelvic exam NEW [employer] SUPERVISOR EXAM with NISHANT MENDEZ RN [facility] 01/24/2016 Last Documented On 6 2:16PM ; [facility] Screen malignant neoplasm cervix NEW [employer] SUPERVISOR EXAM with NISHANT HOGAN RN [facility] 01/24/2016 Last Documented On 6 2:16PM ; [facility] Instructions Includes: Instructions for all patient encounters Instructions to patient Instructions for patient : B reast Self Exam discussed Last Documented On 8 10:58AM ; [facility] Instructions for patient : B reast Self Exam discussed Last Documented On 7 8:27AM ; [facility] Instructed to call if excess mamie bleeding or abdominal/pelvic pain Last Documented On 6 3:24PM ; [facility] Patient may take Motrin OTC PRN as directed Last Documented On 6 3:24PM ; [facility] Instructions for patient : B reast Self Exam discussed and technique reviewed Last Documented On 6 12:57PM ; [facility] Instructions for patient : p atient is to keep a menstrual diary to help with further evaluation and treatment Last Documented On 6 2:12PM ; [facility] Instructions for patient ER if bleeding through reg. sized pad/tampon < 1 hour Last Documented On 6 2:12PM ; [facility] Instructions for patient ER if dizzy, vomiting or light-headed due to heavy bleeding Last Documented On 6 2:12PM ; [facility] Instructed to call if excess mamie bleeding or abdominal/pelvic pain Last Documented On 6 12:57PM ; [facility] Recommend diet and exercise at least 30 min three times per week Last Documented On 6 12:57PM ; [facility] Education and Decision Aids were provided during visit for: Patient education : Last Documented On 8 10:58AM ; [facility] Patient counseling : Use of oral contraceptives discussed in detail including rare occurrence of heart attack, stroke, and leg clots. Patient understands that smoking increases the risk of serious side effects with any steroid-based contraceptive method Last Documented On 8 11:12AM ; [facility] STD screening offered and de clined Last Documented On 8 10:58AM ; [facility] Patient counseling : Use of oral contraceptives discussed in detail including rare occurrence of heart attack, stroke, and leg clots. Patient understands that smoking increases the risk of serious side effects with any steroid-based contraceptive method Last Documented On 7 8:38AM ; [facility] STD screening offered and de clined Last Documented On 7 8:27AM ; [facility] Patient counseling : Use of oral contraceptives discussed in detail including rare occurrence of heart attack, stroke, and leg clots. Patient understands that smoking increases the risk of serious side effects with any steroid-based contraceptive method Last Documented On 6 3:37PM ; [facility] Patient counseling : Use of oral contraceptives discussed in detail including rare occurrence of heart attack, stroke, and leg clots. Patient understands that smoking increases the risk of serious side effects with any steroid-based contraceptive method Last Documented On 6 3:50PM ; [facility] INFORMED CONSENT DISCUSSION: Endometrial biopsy was discussed in detail including discomfort, insufficient specimen with need to repeat test, and rare incidence of uterine perforation. Patient expressed understanding of the above and consented to the procedure Last Documented On 6 3:24PM ; [facility] Patient Education: Daily concha cium and vitamin D Last Documented On 6 12:57PM ; [facility] Medical Equipment - Implanted Devices Includes: Current and historical Devices No Medical Equipment Recorded Medications Includes: Current and historical Medications Current Medications (continue as prescribed) Daily Multivitamin Capsule 01/24/2016 Provider: Diagnosis: Last Documented On 01/24/2016 12:55PM By MARLENE RODNEY MA ; [facility] Past Medications on file Quasense 0.15-0.03MG Oral Tablet 02/27/2018 - 02/26/2019 Provider: ANIYA FREEMAN MD Diagnosis: Excessive and fr equent menstruation with regular cycle One tablet daily Last Documented On 02/27/2018 11:14AM By ANIYA FREEMAN MD ; [facility] Quasense 0.15-0.03MG Oral Tablet 02/17/2018 - 05/19/20 18 Provider: ANIYA FREEMAN MD Diagnosis: One tablet daily Last Documented On 02/17/2018 10:38AM By ANIYA FREEMAN MD ; [facility] Levora 0.15/30 (28) 0.15-30MG-MCG Oral Tablet 02/18/20 17 - 02/17/2017 Provider: Diagnosis: Last Documented On 02/17/2017 8:30AM By ALLISON EDWARDS LPN ; [facility] Quasense 0.15-0.03MG Oral Tablet 02/17/2017 - 02/28/20 18 Provider: Diagnosis: Last Documented On 02/27/2018 10:55AM By Brigitte Perez MA ; [facility] Quasense 0.15-0.03MG Oral Tablet 02/17/2017 - 02/27/2018 Provider: ANIYA FREEMAN MD Diagnosis: Excessive and fr equent menstruation with regular cycle One tablet daily Last Documented On 02/27/2018 11:13AM By ANIYA FREEMAN MD ; [facility] Quasense 0.15-0.03 MG Tablet 07/26/2016 - 02/17/2017 Elissa combs: ANIYA FREEMAN MD Diagnosis: One tablet daily Last Documented On 02/17/2017 8:38AM By ANIYA FREEMAN MD ; [facility] Quasense 0.15-0.03 MG Tablet 02/22/2016 - 07/26/2016 Elissa combs: ANIYA FREEMAN MD Diagnosis: One tablet daily Last Documented On 07/26/2016 3:34PM By ANIYA FREEMAN MD ; [facility] Ibuprofen 800 MG Tablet 02/01/2016 - 02/06/2016 Provider: NISHANT SCHNEIDER Diagnosis: Excessive and fr equent menstruation with regular cycle One tablet three times a day TAKE DIRECTED W/FOOD EVERY 8 HOURS Last Documented On 6 3:46PM By NISHANT SRIVASTAVA ; [facility] Tranexamic Acid 650 MG Tablet 01/24/2016 - 02/08/2016 Provider: NISHANT DIAZ BC Diagnosis: Excessive bleedi ng in the premenopausal period as directed take 2 tabs 3 ti mes a day up to 5 days Last Documented On 6 2:16PM By NISHANT SRIVASTAVA ; [facility] Medications Administered Includes: Administered Medications in patient's chart No Administered Medications Recorded Results Includes: Results from 09/02/2023 through 09/02/2024 No Results Recorded For Specified Dates History of Present Illness History of Present Illness not supported for this document type No History of Present Illness Recorded Social History Description Last Updated In monogamous relationship 02/27/2018 Last Documented On 8 11:14AM ; [facility] Alcohol use: 2 drinks or less per day oc c 02/27/2018 Last Documented On 8 11:14AM ; [facility] Non-smoker 02/27/2018 Last Documented On 8 11:14AM ; [facility] Sexually active 02/27/2018 Last Documented On 8 11:14AM ; [facility] Smoking status : Never smoker 02/22/2016 Last Documented On 6 3:50PM ; [facility] Education history 02/01/2016 Last Documented On 6 3:51PM ; [facility] Personal history 02/01/2016 Last Documented On 6 3:51PM ; [facility] Single 02/01/2016 Last Documented On 6 3:51PM ; [facility] Medical History Includes: Medical History in patient's chart Description Last Updated Aborta 02/27/2018 Last Documented On 8 11:14AM ; [facility] Contraception: Quasense, vasecto my 02/27/2018 Last Documented On 8 11:14AM ; [facility] 2 02/27/2018 Last Documented On 8 11:14AM ; [facility] Last mammogram date: 12/01/2014 8 Last Documented On 8 11:14AM ; [facility] Last pap smear date 01/24/2016 02/27/2018 Last Documented On 8 11:14AM ; [facility] LMP: 11/201702/27/2018 Last Documented On 8 11:14AM ; [facility] Para 2 02/27/2018 Last Documented On 8 11:14AM ; [facility] Result: normal 02/27/2018 Last Documented On 8 11:14AM ; [facility] Result: normal EMBX 02/01/16 02/27/2018 Last Documented On 8 11:14AM ; [facility] A colonoscopy was performed none 017 Last Documented On 7 8:39AM ; [facility] History of Pap smear done 01/24/20162 10/2015 Last Documented On 6 3:51PM ; [facility] Sexually active 02/01/2016 Last Documented On 6 3:51PM ; [facility] Result: abnormal abnormal, pt unsure of results 01/24/2016 Last Documented On 6 2:16PM ; [facility] Family History Includes: Family History in patient's chart No Family History Recorded Review of Systems Review of Systems not supported for this document type No Review of Systems Recorded Mental Status Description No anxiety Functional Status No Functional Status Recorded Physical Exam Physical Exam not supported for this document type No Physical Exam Recorded Allergies Includes: Active, inactive, and resolved Allergies No Known Allergies Insurance Includes: Active Insurance Policies Plan Name Member ID Group # Subscriber Relationship Effect mamie Dates 1 - [facility] [id number] JANESVANI, IVELISSE Clinical Notes Includes: Signed Clinical Notes starting from 08/30/2022 No Clinical Notes Recorded
--- OUTSIDE RECORDS SUMMARY | 2024-09-02 05:27 | XMS_ITS | Clinical Summary ---
Author Organization [facility] Address [address] [place] [address] Phone Care Team Providers Care Human Resources Generalist Name Role Phone DAWIT NOYOLA, LAYLA Urias Unavailable [phone] Reason for Visit and Chief Complaint The Chief Complaint is: Annual exam Problems Includes: Problems addressed during this encounter and other active Problems All Visits Onset Date Resolved Date Provider Condition S tatus Ovarian Cyst Left 01/29/2016 NISHANT MENDEZ RN [facility] Active Last Documented On 01/29/2016 11:08AM ; [facility] Note: Unchanged Plan of Treatment Contraception: vasectomy We reviewed current pap guidelines and she agrees and is aware no pap done today. Pap normal 2016 Continue OCP for cycle control - Last Documented On 02/27/2018 11:14AM ; [facility] Pending Tests Order Diagnosis Results Due Ordering P lauryn Radiology @ other - *MAMMOGRAPHY SCREENING MAMMOGRAM Encntr screen mammogram for malignant neoplasm of breast 02/27/18 ANIYA FREEMAN MD Last Documented On 8 2:36PM ; [facility] Instructions to patient Instructions for patient : B reast Self Exam discussed Last Documented On 8 10:58AM ; [facility] Education and Decision Aids were provided during visit for: Patient education : Last Documented On 8 10:58AM ; [facility] Patient counseling : Use of oral contraceptives discussed in detail including rare occurrence of heart attack, stroke, and leg clots. Patient understands that smoking increases the risk of serious side effects with any steroid-based contraceptive method Last Documented On 8 11:12AM ; [facility] STD screening offered and de clined Last Documented On 8 10:58AM ; [facility] Assessments Includes: Assessments from this encounter Findings - Routine pelvic exam - Last Documented On 02/27/2018 11:14AM ; [facility] Instructions Includes: Instructions from this encounter Instructions to patient Instructions for patient : B reast Self Exam discussed Last Documented On 8 10:58AM ; [facility] Education and Decision Aids were provided during visit for: Patient education : Last Documented On 8 10:58AM ; [facility] Patient counseling : Use of oral contraceptives discussed in detail including rare occurrence of heart attack, stroke, and leg clots. Patient understands that smoking increases the risk of serious side effects with any steroid-based contraceptive method Last Documented On 8 11:12AM ; [facility] STD screening offered and de clined Last Documented On 8 10:58AM ; [facility] Medical Equipment - Implanted Devices Includes: Current Devices No Medical Equipment Recorded Medications Includes: Medications discussed during this encounter and other current Medications Discontinued / Stopped on this date on 02/17/2017 Quasense 0.15-0.03MG Oral Tablet Provider : Diagnosis: Last Documented On 02/27/2018 10:55AM By Brigitte Perez MA ; [facility] New / Renewed during this visit ANIYA FREEMAN MD on 02/27/2018 Quasense 0.15-0.03MG Oral Tablet Provider: ANIYA FREEMAN MD day supply: 91 tablet, 3 refills Diagnosis: Excessive and frequent menstruation with regular cycle One tablet daily Pharmacy: [facility], [address] - Last Documented On 02/27/2018 11:14AM By ANIYA FREEMAN MD ; [facility] Current Medications (continue as prescribed) Daily Multivitamin Capsule 01/24/2016 Provider: Diagnosis: Last Documented On 01/24/2016 12:55PM By MARLENE RODNEY MA ; [facility] Past Medications on file Quasense 0.15-0.03MG Oral Tablet 02/17/2018 - 05/19/20 Provider: ANIYA FREEMAN MD Diagnosis: One tablet daily Last Documented On 02/17/2018 10:38AM By ANIAY FREEMAN MD ; [facility] Ibuprofen 800 MG Tablet 02/01/2016 - 02/06/2016 Provider: NISHANT SCHNEIDER Diagnosis: Excessive and fr equent menstruation with regular cycle One tablet three times a day TAKE DIRECTED W/FOOD EVERY 8 HOURS Last Documented On 6 3:46PM By NISHANT SRIVASTAVA ; [facility] Tranexamic Acid 650 MG Tablet 01/24/2016 - 02/08/2016 Provider: NISHANT SCHNEIDER Diagnosis: Excessive bleedi ng in the premenopausal period as directed take 2 tabs 3 ti mes a day up to 5 days Last Documented On 6 2:16PM By NISHANT SRIVASTAVA ; [facility] Medications Administered Includes: Administered Medications from this encounter No Administered Medications Recorded Vital Signs Includes: Vital Signs from this encounter Vital Name 02/27/2018 10:56A Blood Pressure Sitting (mmHg) 118/70 Pulse Rate-Sitting (bpm) 77 Height (in) 68 Weight (lb) 148 Body Mass Index (kg/m2) 22.5 Body Surface Area (m2) 1.8 Last Documented: On 02/27/2018 10:57A M ; [facility] Results Includes: Results discussed during this encounter No Results Recorded For Specified Dates History of Present Illness Includes: History of Present Illness from this encounter SHAYE SANTANA is a 42 year old female. - No unusual bleeding periods Q3 months on OCP. - No pelvic pain. - No vaginal discharge. Social History Description Last Updated In monogamous relationship 02/27/2018 Last Documented On 8 11:14AM ; [facility] Alcohol use: 2 drinks or less per day oc c 02/27/2018 Last Documented On 8 11:14AM ; [facility] Non-smoker 02/27/2018 Last Documented On 8 11:14AM ; [facility] Sexually active 02/27/2018 Last Documented On 8 11:14AM ; [facility] Smoking Status Unknown Procedures and Surgical History Includes: Procedures from this encounter Procedures Code Diagnosis Performing Provider Service L ocation Service Date Clinical summary provided to patient Last Documented On 8 10:58AM ; [facility] Medical History Includes: Medical History addressed during this encounter Description Last Updated Aborta 02/27/2018 Last Documented On 8 11:14AM ; [facility] Contraception: Quaseemerald, vasecto my 02/27/2018 Last Documented On 8 11:14AM ; [facility] 2 02/27/2018 Last Documented On 8 11:14AM ; [facility] Last mammogram date: 12/01/2014 8 Last Documented On 8 11:14AM ; [facility] Last pap smear date 01/24/2016 02/27/2018 Last Documented On 8 11:14AM ; [facility] LMP: 11/201702/27/2018 Last Documented On 8 11:14AM ; [facility] Para 2 02/27/2018 Last Documented On 8 11:14AM ; [facility] Result: normal 02/27/2018 Last Documented On 8 11:14AM ; [facility] Result: normal EMBX 02/01/16 02/27/2018 Last Documented On 8 11:14AM ; [facility] Family History Includes: Family History addressed during this encounter No Family History Recorded Review of Systems Includes: Review of Systems from this encounter Systemic: No recent weight change. Head: No headache. Eyes: No vision problems. Otolaryngeal: No hoarseness. Cardiovascular: No chest pain or discomfort and no palpitations. Pulmonary: No shortness of breath. Gastrointestinal: Normal appetite. No nausea, no vomiting, and no hematochezia. No diarrhea and no constipation. Genitourinary: No nocturia. No urinary loss of control and no dysuria. Musculoskeletal: No arthralgias and no localized joint swelling. Neurological: No tingling and no numbness. Psychological: No anxiety, no depression, and no sleep disturbances. Mental Status Includes: Mental Status from this encounter Description No anxiety Functional Status Includes: Functional Status from this encounter No Functional Status Recorded Physical Exam Includes: Physical Exam from this encounter Allergies Includes: Active Allergies No Known Allergies Encounters Encounter Provider Location Date Check-In Time Check-Out Time Diagnosis [employer] EXAM ANIYA FREEMAN MD [facility] 02/28/20 18 10:49AM 11:16AM Routine Pelvic Exam Insurance Includes: Active Insurance Policies Plan Name Member ID Group # Subscriber Relationship Effect mamie Dates 1 - [facility] [id number] IVELISSE SANTANA Clinical Notes Includes: Clinical Notes from this encounter No Clinical Notes Recorded
--- OUTSIDE RECORDS SUMMARY | 2024-09-02 05:27 | XMS_ITS | Clinical Summary ---
Author Organization [facility] Address [address] [place] [phone] Phone Care Team Providers Care Corporate Wellness Coordinator Name Role Phone DAWIT NOYOLA, LAYLA Urias Unavailable [phone] Reason for Visit and Chief Complaint MED CHECK Problems Includes: Problems addressed during this encounter and other active Problems All Visits Onset Date Resolved Date Provider Condition S tatus Ovarian Cyst Left 01/29/2016 NISHANT MENDEZ RN [facility] Active Last Documented On 01/29/2016 11:08AM ; [facility] Note: Unchanged Plan of Treatment No Plan of Treatment Recorded Assessments Includes: Assessments from this encounter No Assessments Recorded Medical Equipment - Implanted Devices Includes: Current Devices No Medical Equipment Recorded Medications Includes: Medications discussed during this encounter and other current Medications Current Medications (continue as prescribed) Daily Multivitamin Capsule 01/24/2016 Provider: Diagnosis: Last Documented On 01/24/2016 12:55PM By MARLENE RODNEY MA ; [facility] Medications Administered Includes: Administered Medications from this encounter No Administered Medications Recorded Results Includes: Results discussed during this encounter No Results Recorded For Specified Dates History of Present Illness Includes: History of Present Illness from this encounter No History of Present Illness Recorded Social History No Social History Recorded - Smoking Status Unknown Medical History Includes: Medical History addressed during this encounter No Medical History Recorded Family History Includes: Family History addressed during this encounter No Family History Recorded Review of Systems Includes: Review of Systems from this encounter No Review of Systems Recorded Mental Status Includes: Mental Status from this encounter No Mental Status Recorded Functional Status Includes: Functional Status from this encounter No Functional Status Recorded Physical Exam Includes: Physical Exam from this encounter No Physical Exam Recorded Allergies Includes: Active Allergies No Known Allergies Insurance Includes: Active Insurance Policies Plan Name Member ID Group # Subscriber Relationship Effect mamie Dates 1 - [id number] ESTHER, IVELISSE Clinical Notes Includes: Clinical Notes from this encounter No Clinical Notes Recorded
--- OUTSIDE RECORDS SUMMARY | 2024-09-02 05:27 | XMS_ITS | Clinical Summary ---
Author Organization [facility] Address [address] [place] [address] Phone Care Team Providers Care Commission Clerk Name Role Phone DAWIT NOYOLA, LAYLA Urias Unavailable [phone] Reason for Visit and Chief Complaint The Chief Complaint is: med check Problems Includes: Problems addressed during this encounter and other active Problems All Visits Onset Date Resolved Date Provider Condition S tatus Ovarian Cyst Left 01/29/2016 NISHANT MENDEZ RN [facility] Active Last Documented On 01/29/2016 11:08AM ; [facility] Note: Unchanged Plan of Treatment Contraception: partner s/p vasectomy Continue OCP for menorrhagia - Last Documented On 07/26/2016 3:40PM ; [facility] Education and Decision Aids were provided during visit for: Patient counseling : Use of oral contraceptives discussed in detail including rare occurrence of heart attack, stroke, and leg clots. Patient understands that smoking increases the risk of serious side effects with any steroid-based contraceptive method Last Documented On 6 3:37PM ; [facility] Assessments Includes: Assessments from this encounter Findings - Menorrhagia - Last Documented On 07/26/2016 3:40PM ; [facility] Instructions Includes: Instructions from this encounter Education and Decision Aids were provided during visit for: Patient counseling : Use of oral contraceptives discussed in detail including rare occurrence of heart attack, stroke, and leg clots. Patient understands that smoking increases the risk of serious side effects with any steroid-based contraceptive method Last Documented On 6 3:37PM ; [facility] Medical Equipment - Implanted Devices Includes: Current Devices No Medical Equipment Recorded Medications Includes: Medications discussed during this encounter and other current Medications New / Renewed during this visit ANIYA FREEMAN MD on 07/26/2016 Quasense 0.15-0.03 MG Tablet Provider: ANIYA FREEMAN MD day supply: 91 tablet, 1 refills Diagnosis: One tablet daily Pharmacy: [address], [address] - Last Documented On 02/17/2017 8:38AM By ANIYA FREEMAN MD ; [facility] Current Medications (continue as prescribed) Daily Multivitamin Capsule 01/24/2016 Provider: Diagnosis: Last Documented On 01/24/2016 12:55PM By MARLENE RODNEY MA ; [facility] Past Medications on file Quasense 0.15-0.03MG Oral Tablet 02/27/2018 - 02/26/2019 Provider: ANIYA FREEMAN MD Diagnosis: Excessive and fr equent menstruation with regular cycle One tablet daily Last Documented On 02/27/2018 11:14AM By ANIYA FREEMAN MD ; [facility] Quasense 0.15-0.03MG Oral Tablet 02/17/2018 - 05/19/20 18 Provider: ANIYA FREEMAN MD Diagnosis: One tablet daily Last Documented On 02/17/2018 10:38AM By ANIYA FREEMAN MD ; [facility] Ibuprofen 800 MG Tablet 02/01/2016 - 02/06/2016 Provider: NISHANT DIAZ BC Diagnosis: Excessive and fr equent menstruation with regular cycle One tablet three times a day TAKE DIRECTED W/FOOD EVERY 8 HOURS Last Documented On 6 3:46PM By NISHANT SRIVASTAVA ; [facility] Tranexamic Acid 650 MG Tablet 01/24/2016 - 02/08/2016 Provider: NISHANT DIAZ BC Diagnosis: Excessive bleedi ng in the premenopausal period as directed take 2 tabs 3 ti mes a day up to 5 days Last Documented On 6 2:16PM By NISHANT SRIVASTAVA ; [facility] Medications Administered Includes: Administered Medications from this encounter No Administered Medications Recorded Vital Signs Includes: Vital Signs from this encounter Vital Name 07/26/2016 03:20P 07/26/2016 03:18P 07/26 03:14P Blood Pressure Sitting (mmHg) 122/78 Weight (lb) 136 Height (in) 136 68 Last Documented: On 07/26/2016 3:21PM ; [facility] On 07/26/2016 3:18PM ; [facility] On 07/26/2016 3:14PM ; [facility] Results Includes: Results discussed during this encounter No Results Recorded For Specified Dates History of Present Illness Includes: History of Present Illness from this encounter HPI MARY SANTANA is a 40 year old female. - Feeling fine - No recent weight change - Headache - Pain in both breasts - No bloating - No sexual complaints She had 2-3 weeks of spotting in a row during 1st pack of OCP but since then had a period at end of the 3 month pack which was 2-3 days long, and has taken one month of new pack and had no bleeding on it so far. She has mild breast tenderness and occasional BENOIT similar to prior to OCP so overall is very happy with results! Social History Description Last Updated Alcohol use: 2 drinks or less per day oc c 07/26/2016 Last Documented On 6 3:40PM ; [facility] Non-smoker 07/26/2016 Last Documented On 6 3:40PM ; [facility] Sexually active 07/26/2016 Last Documented On 6 3:40PM ; [facility] Smoking Status Unknown Medical History Includes: Medical History addressed during this encounter Description Last Updated LMP: 06/25/2016 07/26/2016 Last Documented On 6 3:40PM ; [facility] Contraception: partner with vasectomy/pi ll 07/26/2016 Last Documented On 6 3:40PM ; [facility] 2 07/26/2016 Last Documented On 6 3:40PM ; [facility] Last mammogram date: 12/01/2014 6 Last Documented On 6 3:40PM ; [facility] Last pap smear date 01/24/2016 07/26/2016 Last Documented On 6 3:40PM ; [facility] Para 2 07/26/2016 Last Documented On 6 3:40PM ; [facility] Family History Includes: Family History addressed during this encounter No Family History Recorded Review of Systems Includes: Review of Systems from this encounter Systemic: No fever, no chills, no night sweats, and no recent weight change. Head: Headache. No facial pain and no sinus pain. Breasts: No breast lump and no nipple discharge. Pain in breast. Cardiovascular: No chest pain or discomfort and the heart rate was not fast. Pulmonary: No dyspnea. Gastrointestinal: Normal appetite, no nausea, no vomiting, and no abdominal pain. Genitourinary: No hematuria and no increase in urinary frequency. No dysuria. 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
--- OUTSIDE RECORDS SUMMARY | 2024-09-02 05:27 | XMS_ITS | Clinical Summary ---
Author Organization [facility] Address [address] [place] [address] Phone Care Team Providers Care Control Clerk Head Name Role Phone DAWIT NOYOLA, LAYLA Urias Unavailable [phone] Reason for Visit and Chief Complaint The Chief Complaint is: Annual Exam Problems Includes: Problems addressed during this encounter and other active Problems All Visits Onset Date Resolved Date Provider Condition S tatus Ovarian Cyst Left 01/29/2016 NISHANT MENEDZ RN [facility] Active Last Documented On 01/29/2016 11:08AM ; [facility] Note: Unchanged Plan of Treatment Contraception: vasectomy but continue OCP for cycle control We reviewed current pap guidelines and she agrees and is aware no pap done today. pap normal 2015 - Last Documented On 02/17/2017 8:39AM ; [facility] Instructions to patient Instructions for patient : B reast Self Exam discussed Last Documented On 7 8:27AM ; [facility] Education and Decision Aids were provided during visit for: Patient counseling : Use of oral contraceptives discussed in detail including rare occurrence of heart attack, stroke, and leg clots. Patient understands that smoking increases the risk of serious side effects with any steroid-based contraceptive method Last Documented On 7 8:38AM ; [facility] STD screening offered and de clined Last Documented On 7 8:27AM ; [facility] Assessments Includes: Assessments from this encounter Findings - Routine pelvic exam - Last Documented On 02/17/2017 8:39AM ; [facility] Instructions Includes: Instructions from this encounter Instructions to patient Instructions for patient : B reast Self Exam discussed Last Documented On 7 8:27AM ; [facility] Education and Decision Aids were provided during visit for: Patient counseling : Use of oral contraceptives discussed in detail including rare occurrence of heart attack, stroke, and leg clots. Patient understands that smoking increases the risk of serious side effects with any steroid-based contraceptive method Last Documented On 7 8:38AM ; [facility] STD screening offered and de clined Last Documented On 7 8:27AM ; [facility] Medical Equipment - Implanted Devices Includes: Current Devices No Medical Equipment Recorded Medications Includes: Medications discussed during this encounter and other current Medications Discontinued / Stopped on this date on 02/17/2017 Levora 0.15/30 (28) 0.15-30MG-MCG Oral Tablet Provider: Diagnosis: Last Documented On 02/17/2017 8:30AM By ALLISON EDWARDS LPN ; [facility] New / Renewed during this visit ANIYA FREEMAN MD on 02/17/2017 Quasense 0.15-0.03MG Oral Tablet Provider: ANIYA FREEMAN MD day supply: 91 tablet, 3 refills Diagnosis: Excessive and frequent menstruation with regular cycle One tablet daily Pharmacy: [address], [address] - Last Documented On 02/27/2018 11:13AM By ANIYA FREEMAN MD ; [facility] Current Medications (continue as prescribed) Daily Multivitamin Capsule 01/24/2016 Provider: Diagnosis: Last Documented On 01/24/2016 12:55PM By MARLENE RODNEY MA ; [facility] Past Medications on file Quasense 0.15-0.03MG Oral Tablet 02/27/2018 - 02/26/2019 Provider: ANIYA FREEMAN MD Diagnosis: Excessive and fr equent menstruation with regular cycle One tablet daily Last Documented On 02/27/2018 11:14AM By ANIYA FREEMAN MD ; [facility] Quasense 0.15-0.03MG Oral Tablet 02/17/2018 - 05/19/20 18 Provider: ANIYA FREEMAN MD Diagnosis: One tablet daily Last Documented On 02/17/2018 10:38AM By ANIYA FREEMAN MD ; [facility] Ibuprofen 800 MG Tablet 02/01/2016 - 02/06/2016 Provider: NISHANT HOGAN RN [facility] Diagnosis: Excessive and fr equent menstruation with regular cycle One tablet three times a day TAKE DIRECTED W/FOOD EVERY 8 HOURS Last Documented On 6 3:46PM By NISHANT SRIVASTAVA ; [facility] Tranexamic Acid 650 MG Tablet 01/24/2016 - 02/08/2016 Provider: NISHANT SCHNEIDER Diagnosis: Excessive bleedi ng in the premenopausal period as directed take 2 tabs 3 ti mes a day up to 5 days Last Documented On 6 2:16PM By NISHANT SRIVASTAVA ; [facility] Medications Administered Includes: Administered Medications from this encounter No Administered Medications Recorded Vital Signs Includes: Vital Signs from this encounter Vital Name 02/17/2017 08:19A 02/17/2017 08: 19A Height (in) 136 68 Blood Pressure Sitting (mmHg) 130/82 Weight (lb) 132.8 Body Mass Index (kg/m2) 20.2 Body Surface Area (m2) 1.7 Last Documented: On 02/17/2017 8:19AM ; [facility] On 02/17/2017 8:22AM ; [facility] Results Includes: Results discussed during this encounter URINALYSIS [facility] Ordered by ANIYA FREEMAN MD on 7 Collected: Reported: 02/17/2017 08:32 Last Documented On 7 8:32AM ; [facility] Reviewed on 02/17/2017; All test results are final unless otherwise noted. Glucose negative (negaive) N (Normal) Last Documented On 7 8:32AM ; [facility] Bilirubin negative (Negative) N (Normal) Last Documented On 7 8:32AM ; [facility] Ketones negative (Negative) N (Normal) Last Documented On 7 8:32AM ; [facility] Sp Elrama 1.000 (1.015-1.030) N (Normal) Last Documented On 7 8:32AM ; [facility] Blood negative (Negative) N (Normal) Last Documented On 7 8:32AM ; [facility] pH 6.5 (5-9) N (Normal) Last Documented On 7 8:32AM ; [facility] Protein negative (Negative) N (Normal) Last Documented On 7 8:32AM ; [facility] Urobilinogen negative (Negative) N (Normal) Last Documented On 7 8:32AM ; [facility] Nitrite negative (Negative) N (Normal) Last Documented On 7 8:32AM ; [facility] Leukocytes + (Negative) A (Abnormal) Last Documented On 7 8:32AM ; [facility] History of Present Illness Includes: History of Present Illness from this encounter HPI MARY SANTANA is a 41 year old female. - Medication list reviewed. - No unusual bleeding. - No pelvic pain. - No vaginal discharge. 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 Social History Description Last Updated In monogamous relationship 02/17/2017 Last Documented On 7 8:39AM ; [facility] Alcohol use: 2 drinks or less per day oc c 02/17/2017 Last Documented On 7 8:39AM ; [facility] Sexually active 02/17/2017 Last Documented On 7 8:39AM ; [facility] Non-smoker 02/17/2017 Last Documented On 7 8:39AM ; [facility] Smoking Status Unknown Procedures and Surgical History Includes: Procedures from this encounter Procedures Code Diagnosis Performing Provider Service L ocation Service Date Clinical summary provided to patient Last Documented On 7 8:27AM ; [facility] Medical History Includes: Medical History addressed during this encounter Description Last Updated A colonoscopy was performed none 017 Last Documented On 7 8:39AM ; [facility] LMP: 02/12/2017 02/17/2017 Last Documented On 7 8:39AM ; [facility] Contraception: vasectomy/pill 02/17/2017 Last Documented On 7 8:39AM ; [facility] 2 02/17/2017 Last Documented On 7 8:39AM ; [facility] Last mammogram date: 12/01/2014 7 Last Documented On 7 8:39AM ; [facility] Last pap smear date 01/24/2016 02/17/2017 Last Documented On 7 8:39AM ; [facility] Para 2 02/17/2017 Last Documented On 7 8:39AM ; [facility] Family History Includes: Family History [...] Location Date Check-In Time Check-Out Time Diagnosis 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
--- OUTSIDE RECORDS SUMMARY | 2024-09-02 05:27 | XMS_ITS | Clinical Summary ---
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 Problems Includes: Problems addressed during this encounter and other active Problems All Visits Onset Date Resolved Date Provider Condition S tatus Ovarian Cyst Left 01/29/2016 NISHANT MENDEZ RN [facility] Active Last Documented On 01/29/2016 11:08AM ; [facility] [...] 01/24/2016 12:55PM By MARLENE RODNEY MA ; [facility] Medications Administered Includes: Administered Medications [...] Subscriber Relationship Effect mamie Dates 1 - [id number] ESTHER, IVELISSE Clinical Notes Includes: Clinical Notes from this encounter No Clinical Notes Recorded
== END 2024-08-27 08:15 | disposition home or self-care (01) ==
LOC: ANHIMG 08:20
PROVIDERS: Visit Provider Physician Assistant Surgical
DX: N63.11 Unspecified lump in the right breast, upper outer quadrant (principal); N63.21 Unspecified lump in the left breast, upper outer quadrant
CPT/HCPCS: 76642

== ENCOUNTER 2025-05-27 10:26 | Outpatient (CLI) | payer OTHER, SELFPAY ==
--- NOTE | ~2025-05-27 | US_ITS ---
Clinical history:Follow-up. Prior mastectomy. EXAM:Ultrasound breast bilateral limited TECHNIQUE:Multiple static grayscale images and color Doppler images were obtained. Comparisons:08/27/2024 FINDINGS: There is a oval hypoechoic structure in the left breast at the 12 to 2:00 position anterior depth with a maximal dimension of 4.8 cm. There is a 3.3 x 0.4 cm hypoechoic structure in the right breast at the 9 to 12:00 position. IMPRESSION: There is a oval hypoechoic structure in the left breast at the 12 to 2:00 position anterior depth with a maximal dimension of 4.8 cm. The finding is similar to the prior study. A breast MRI with contrast is recommended for further assessment. There is a 3.3 x 0.4 cm hypoechoic structure in the right breast at the 9 to 12:00 position. The finding is similar to the prior study. A breast MRI with contrast is recommended for further assessment. BI-RADS 0: Incomplete-Need additional imaging evaluation. Reviewed, dictated and finalized at location Q. IMPRESSION: There is a oval hypoechoic structure in the left breast at the 12 to 2:00 posit ion anterior depth with a maximal dimension of 4.8 cm. The finding is similar t o the prior study. A breast MRI with contrast is recommended for further assess ment. There is a 3.3 x 0.4 cm hypoechoic structure in the right breast at the 9 to 12 :00 position. The finding is similar to the prior study. A breast MRI with cont rast is recommended for further assessment. BI-RADS 0: Incomplete-Need additional imaging evaluation.
--- OUTSIDE RECORDS SUMMARY | 2025-05-27 11:05 | XMS_ITS | Clinical Summary ---
Author Organization [facility] Address [address] [place] [address] Phone Care Team Providers Care Certified Legal Investigator Name Role Phone Arely Browne APRN, WHITE [employer] SUPERVISOR Primary Care Provider [phone] Allergies No known active allergies Medications spironolactone (ALDACTONE) 100 MG Tablet Take 100 mg by mouth daily. 02/14/20 22 Active multi-vitamins (Daily Vites) Tablet Take 1 Tablet by mouth daily. Active cholecalciferol (D2000 Ultra Strength) 2000 UNIT Capsule Take 2,000 Units by mouth. 07/02/20 22 Active MAGNESIUM GLYCINATE PO Take by mouth. Ac tive venlafaxine (EFFEXOR-XR) 37.5 MG CAPSULE SR 24 HRIndications:Pre menstrual Dysphoric Disorder Take 1 Capsule by mouth daily. Indications: Premenstrual Disorder with a State of Unhappiness 90 Capsule 03/25/20 25 Active amphetamine-dextr oamphetamine (ADDERALL) 20 MG TabletIndications :Attention Deficit Hyperactivity Disorder Take 1 Tablet by mouth daily. .May take a 1/2 tab as needed in the afternoon. Indications: ADHD - Attention Deficit Hyperactivity Disorder 45 Tablet 05/05/20 25 Active amphetamine-dextr oamphetamine (ADDERALL) 20 MG TabletIndications :Attention Deficit Hyperactivity Disorder Take 1 Tablet by mouth daily. .May take a 1/2 tab as needed in the afternoon. Indications: Attention Deficit Hyperactivity Disorder 45 Tablet 03/25/20 25 025 Discontin ued(Reord er) Active Problems Problem Noted Date Diagnosed Date Biceps tendinitis on right 06/15/2022 Overview (03/25/2025): Added automatically from request for surgery [id number] Impingement syndrome of right shoulder Overview (03/25/2025): Added automatically from request for surgery [id number] Arthritis of right acromioclavicular joint 06/15 Overview (03/25/2025): Added automatically from request for surgery [id number] Family history of malignant neoplasm of breast 0 09/28/2012 Overview (03/25/2025): Family history of breast cancer in female Fibrocystic breast changes 09/28/2012 Overview (03/25/2025): Fibrocystic breast changes Gout 11/02/2001 Overview (03/25/2025): Gout Encounters Date Type Department Care Team Description 05/05/2025 Refill [facility] - [place] [address] [place] [address] Arely Browne APRN, CNP Medication Refill 03/25/2025 7:15 AM CDT Office Visit [facility] [address] [place] [address] Arely Browne APRN, CHEPE Attention deficit hyperactivity disorder (ADHD), unspecified ADHD type (Primary Dx); Premenopausal patient; Screen for colon cancer Discharge Disposition: Discharged to home or Selfcare 03/25/2025 Travel 03/24/2025 Telephone [facility] [address] [place] [address] Arely Browne APRN, CHEPE from Last 3 Months Family History Medical History Relation Name Comments No Known Problems Father No Known Problems Mother Relation Name Status Comments Father Alive Mother Alive Social History Tobacco Use Types Packs/Day Years Used Date Smoking Tobacco: Never Smokeless Tobacco: Never Tobacco Cessation:Counseling Given: No Alcohol Use Standard Drinks/Week Comments Not Currently 0 (1 standard drink = 0.6 oz pur e alcohol) PHQ-2 Answer Date Recorded Total Score - Questions 1-9 0 03/11 Sexually Active Control Partners Comments Yes Comments Unknown Sex and Gender Information Value Date Recorded Sex Assigned at Not on file Legal Sex Female 7:32 PM CDT Gender Identity Not on file Sexual Orientation Not on file Last Filed Vital Signs Vital Sign Reading Time Taken Comments Blood Pressure 92/60 03/25/2025 7:34 AM CDT Pulse 86 03/25/2025 7:34 AM CDT Temperature 37.3 C (99.1 F) 03/25/2025 7:34 AM CDT Respiratory Rate 18 03/25/2025 7:34 AM CDT Oxygen Saturation 97% 03/25/2025 7:34 AM CDT Inhaled Oxygen Concentration - - Weight 64.3 kg (141 lb 11.2 oz) 03/25/2025 7:34 AM CDT Height 172.7 cm (5' 8) 03/25/2025 7:34 AM CDT Body Mass Index 21.55 03/25/2025 7:34 AM CDT Plan of Treatment Upcoming Encounters Date Type Department Care Team (Late st Contact Info) Description 06/24/2025 7:15 AM TEST ADMINISTRATOR Telemedicine [facility] - Primary Care - [place] [address] [place] [id number] Arely Browne M, INSTANT POWDER SUPERVISOR, WHITE [employer]AR SUPERVISOR [address] [place], [place] [id number] Health Maintenance Due Date Last Done Comments Hepatitis C Virus (HCV) Screening 1977 TdaP Immunization 1977 Hepatitis B Immunization (1 of 3 - 19+ 3-dose series) 1996 06/15/2002, 05/05/2002 Pap Smear 1998 HPV/Cotest 11/05/2007 Cologuard 2022 Colonoscopy 2022 Immunochemical Fecal Occult Blood 2022 Influenza Immunization (#1) 2025 SARS-COV-2 Immunization ( season) 2025 Cervical Cancer Screening (CCS) 03/24/2026 Postponed from 11/04 (Patient Temporarily Declines) Colorectal Cancer Screening 03/24/2026 Postponed from 2022 (Patient Temporarily Declines) Respiratory Syncytial Virus (RSV) Immunization (Adult) (1 - 1-dose 75+ series) 2052 Discussion re Starting/Frequency of Mammograms Completed 12/01/2014, 05/04/2014 Mammogram Discontinued 12/01/2014, 05/04/2014 Human Papillomavirus (HPV) Immunization Aged Out No longer eligible b ased on patient's age to complete this topic Meningococcal Immunization (ACWY) Aged Out No longer eligible b ased on patient's age to complete this topic Pneumococcal Immunization Combined Aged Out No longer eligible b ased on patient's age to complete this topic Rotavirus Immunization Aged Out No lo nger eligible based on patient's age to complete this topic Insurance avandeo Care Teams Certified Legal Investigator Relationship Specialty Start Date End Date Arely Browen, INSTANT POWDER SUPERVISOR, WHITE SUGAR SUPERVISOR [address] [place] [address] PCP - General Certified Nurse Practitioner 03/25/25
--- OUTSIDE RECORDS SUMMARY | 2025-05-27 11:05 | XMS_ITS | Clinical Summary ---
Author Organization [facility] [address] Address [address] [place] [id number] Care Team Providers Care Fisher Net Name Role Phone Arline Clifton PA Unavailable [phone] No, Physician Primary Care Provider [phone] Allergies No known active allergies Medications dextroamphetami ne-amphetamine (ADDERALL) 20 mg tablet Take 1 tablet (20 mg total) by mouth daily 2 Active spironolactone (ALDACTONE) 100 mg tablet Take 1 tablet (100 mg total) by mouth daily 2 Active ascorbic acid (VITAMIN C) 500 mg tablet,chewable Take 1 tablet/chew tab (500 mg total) by mouth 2 (two) times a day 60 tablet/chew tab 2 Active Additional Information Patient not taking.Reported on 03/09/2025 cholecalciferol (VITAMIN D-3) 2000 unit capsule Take 1 capsule (2,000 Units total) by mouth daily 30 capsule 2 Active Additional Information Patient not taking.Reported on 03/09/2025 senna-docusate (PERICOLACE) 8.6-50 mg 1-2 times daily as needed for constipation 60 tablet 1 2 Active Additional Information Patient not taking.Reported on 03/09/2025 ondansetron (ZOFRAN) 4 mg tabletIndicatio ns:Prevention of Post-Operative Nausea and Vomiting Take 1 tablet (4 mg total) by mouth every 6 (six) hours as needed for nausea or vomiting 15 tablet 1 2 Active Additional Information Patient not taking.Reported on 03/09/2025 multivitamin with iron tablet Take 1 tablet by mouth daily Active escitalopram (Lexapro) 10 mg tablet Take 1 tablet (10 mg total) by mouth daily 3 Active tamoxifen (NOLVADEX) 20 mg tablet Take 1 tablet (20 mg total) by mouth daily 4 Active Active Problems Problem Noted Date Diagnosed Date Superior glenoid labrum lesion of right shoulder 06/15/2022 Overview (06/15/2022): Added automatically from request for surgery [id number] Arthritis of right acromioclavicular joint 06/15 Overview (06/15/2022): Added automatically from request for surgery [id number] Biceps tendinitis on right 06/15/2022 Overview (06/15/2022): Added automatically from request for surgery [id number] Impingement syndrome of right shoulder 2 Overview (06/15/2022): Added automatically from request for surgery [id number] Mass of breast 10/02/2012 Family history of malignant neoplasm of breast 0 09/28/2012 Overview (11/14/2016): Family history of breast cancer in female Fibrocystic breast changes 09/28/2012 Overview (11/15/2016): Fibrocystic breast changes Gout 11/02/2001 Overview (11/15/2016): Gout Encounters Date Type Department Care Team Description 03/10/2025 2:45 PM CDT Office Visit [facility] Medicine Physicians [facility] [address] [place] [address] Office [address] [place] [phone] Maggy Ortiz, DISTILLATION OPERATOR Invasive ductal carcinoma of left breast (HCC) (Primary Dx); Malignant neoplasm of female breast, unspecified estrogen receptor status, unspecified laterality, unspecified site of breast (HCC) 03/10/2025 2:15 PM CDT Lab [facility] [address] [facility] [address] [place] [address] Invasive ductal carcinoma of left breast (HCC); Malignant neoplasm of female breast, unspecified estrogen receptor status, unspecified laterality, unspecified site of breast (HCC) 03/09/2025 11:26 AM CDT - 03/09/2025 11:59 PM CDT Hospital Encounter [address] [address] Vaginal burning Discharge Disposition: Discharge to home or self care 03/09/2025 10:45 AM CDT Office Visit [facility] at [address] [phone] Sammi Jones PA Vaginal burning (Primary Dx); Shortness of breath 03/09/2025 Results Follow-Up [facility] at [address] [phone] Sammi Jones PA Vaginitis panel Vaginal, Urine culture Urine, clean voided from Last 3 Months Immunizations Immunization Administration Dates Next Due Hep B, Adolescent or Pediatric 06/15/2002,2001 TD Preservative Free 05/05/2002 Surgical History Surgery Date Site/Laterality Comments OTHER SURGICAL HISTORY (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 Never 03/10/2025 Average Number of Drinks Not on file 025 Frequency of Binge Drinking Not on file 02/10 Comments No Sex and Gender Information Value Date Recorded Sex Assigned at Not on file Legal Sex Female 2:07 AM [employer]OX [employer] Gender Identity Not on file Sexual Orientation Not on file Obstetrics History Last Filed Vital Signs Vital Sign Reading Time Taken Comments Blood Pressure 106/60 03/10/2025 2:21 PM CDT Pulse 70 03/10/2025 2:21 PM CDT Temperature 36.3 C (97.3 F) 03/10/2025 2:21 PM CDT Respiratory Rate 18 03/10/2025 2:21 PM CDT Oxygen Saturation 99% 03/10/2025 2:21 PM CDT Inhaled Oxygen Concentration - - Weight 65 kg (143 lb 3.2 oz) 03/10/2025 2:21 PM CDT Height 172.7 cm (5' 8) 03/10/2025 2:21 PM CDT Body Mass Index 21.77 03/10/2025 2:21 PM CDT Plan of Treatment Health Maintenance Due Date Last Done Comments Colon Cancer Screening-Colonoscopy 1977 Depression Screening 1977 Hepatitis C Screening 1977 Regular Well Visit/Exam 18-64 11/05/1995 Pneumococcal vaccine <65 (1 of 2 - PCV) 1996 Zoster Vaccine (1 of 2) 1996 DTaP/Tdap/Td Vaccine (1 - Tdap) 05/06/2002 2 Cervical Cancer Screening 09/25/2013 09/25/2012 Breast Cancer Screening-Mammogram 05/04/2015 014 Influenza Vaccine (#1) 2025 Hepatitis B Screening Completed 06/15/2002, 002 Medical Devices Implanted Type Area Database Management System Specialist Device Identifier Shelf Expiration Date Model / Serial / Lot [employer] Set Implant [employer] Fibertak Biceps Sterile Latex Free [id number] - [id number] Implanted:Qty: 1 on 07/02/2022 by Zachary Cohn MD at [facility] Right: Shoulder [employer] 04/10/2027 [id number]-[id number] / / [id number] Procedures Procedure Name Priority Date/Time Associated Diagnosis Comments EGFR Routine 03/10/2025 2:10 PM CDT Invasive ductal carcinoma of left breast (HCC) Malignant neoplasm of female breast, unspecified estrogen receptor status, unspecified laterality, unspecified site of breast (HCC) DIFFERENTIAL AUTO Routine 03/10/2025 2:1 0 PM CDT Invasive ductal carcinoma of left breast (HCC) Malignant neoplasm of female breast, unspecified estrogen receptor status, unspecified laterality, unspecified site of breast (HCC) CBC WITH AUTO DIFFERENTIAL Routine 03/10/2025 2:10 PM CDT Invasive ductal carcinoma of left breast (HCC) Malignant neoplasm of female breast, unspecified estrogen receptor status, unspecified laterality, unspecified site of breast (HCC) COMPREHENSIVE METABOLIC PANEL Routine 03/10/2025 2:10 PM CDT Invasive ductal carcinoma of left breast (HCC) Malignant neoplasm of female breast, unspecified estrogen receptor status, unspecified laterality, unspecified site of breast (HCC) URINE CULTURE Routine 03/09/2025 11:26 AM CDT Vaginal burning VAGINITIS PANEL Routine 03/09/2025 11:26 AM CDT Vaginal burning POCT URINALYSIS DIPSTICK Routine 03/09/2025 11:06 AM CDT Vaginal burning SCREENING MAMMOGRAM W RAÚL Routine 05/04/2014 9:31 AM CDT THINPAP, REFLEX HPV ALL PTH Routine 09/25/2012 12:00 AM BOX [employer] from Last 3 Months or Most Recently Relevant to Health Maintenance Results * eGFR (03/10/2025 2:10 PM CDT) eGFR >90 >=60 mL/min/1. 73 m2 Comment: Interpretive Data Reference Interval Normal >/= 90 mL/min/1.73m2 Mildly decreased* 60 - 89 mL/min/1.73m2 Mildly to moderately decreased 45 - 59 mL/min/1.73m2 Moderately to severely decreased 30 - 44 mL/min/1.73m2 Severely decreased 15 - 29 mL/min/1.73m2 Kidney Failure < 15 mL/min/1.73m2 *Relative to young adult level Estimated glomerular filtration rate is determined by the 2020 CKD-EPI equation recommended by the National Kidney Foundation (A Unifying Approach to GFR Estimation: Recommendations of the NKF-ASK Task Force on Reassessing the Inclusion of Race in Diagnosing Kidney Disease, JASN 2020). The CKD-EPI equation should not be used for patients with unstable renal function and has not been validated in children and those over 70. Current interpretive data was last reviewed 2021. Testing performed by: [facility], [address] [facility], [place], [address] Blood 03/10/2025 2:10 PM CDT 03/10/2025 2:20 PM CDT us Fitz Clarke MD LAB BLOOD ORDERABLES Jacki gaviria Result [facility] ([place]) [address] [facility] Department [place] [address] * (ABNORMAL) Differential, auto (03/10/2025 2:10 PM CDT) Neutrophil abs 3.59 1.50 - 6.50 K/cumm [facility] ([place]) Comment:Testing performed by : [facility] [address], Medical Office [facility] [address], [place] [address] Imm gran abs 0.01 0.00 - 0.10 K/cumm [facility] ([place]) Comment:Testing performed by : [facility] [address], Medical Office [facility] [address], [place] [address] Lymphocyte abs 2.14 0.80 - 3.30 K/cumm [facility] ([place]) Comment:Testing performed by : [facility] [address], Medical Office [facility] [address], [place] [address] Monocyte abs 0.59 0.20 - 0.80 K/cumm [facility] ([place]) Comment:Testing performed by : [facility] [address], Medical Office [facility] [address], [place] [address] Eosinophil abs 0.41 0.00 - 0.50 K/cumm [facility] ([place]) Comment:Testing performed by : [facility] [address], Medical Office [facility] [address], [place] [address] Basophil abs 0.13(H) 0.00 - 0.10 K/cumm [facility] ([place]) Comment:Testing performed by : [facility] [address], Medical Office [facility] [address], [place] [address] Neutrophil pct 52.3 % [facility] ([place]) Comment: Interpretive Data Percent cell count reference ranges are not reported, since discordance with absolute values may lead to misinterpretation of CBC data. Current Interpretive Data was last revised on 2022. Testing performed by: [facility] [address], Medical Office [facility] [address], [place] [address] Imm gran pct 0.1 % [facility] ([place]) Comment: Interpretive Data Percent cell count reference ranges are not reported, since discordance with absolute values may lead to misinterpretation of CBC data. Current Interpretive Data was last revised on 2022. Testing performed by: [facility] [address], Medical Office [facility] [address], [place] [address] Lymphocyte pct 31.1 % [facility] ([place]) Comment: Interpretive Data Percent cell count reference ranges are not reported, since discordance with absolute values may lead to misinterpretation of CBC data. Current Interpretive Data was last revised on 2022. Testing performed by: [facility] [address], Medical Office [facility] [address], [place] [address] Monocyte pct 8.6 % [facility] ([place]) Comment: Interpretive Data Percent cell count reference ranges are not reported, since discordance with absolute values may lead to misinterpretation of CBC data. Current Interpretive Data was last revised on 2022. Testing performed by: [facility] [address], Medical Office [facility] [address], [place] [address] Eosinophil pct 6.0 % [facility] ([place]) Comment: Interpretive Data Percent cell count reference ranges are not reported, since discordance with absolute values may lead to misinterpretation of CBC data. Current Interpretive Data was last revised on 2022. Testing performed by: [facility] [address], Medical Office [facility] [address], [place] [address] Basophil pct 1.9 % [facility] ([place]) Comment: Interpretive Data Percent cell count reference ranges are not reported, since discordance with absolute values may lead to misinterpretation of CBC data. Current Interpretive Data was last revised on 2022. Testing performed by: [facility] [address], Medical Office [facility] [address], [place] [address] Blood 03/10/2025 2:10 PM CDT 03/10/2025 2:17 PM CDT Fitz Clarke MD LAB BLOOD ORDERABLES Jacki everette Result [facility] ([place]) [address] [facility] [place] [address] * (ABNORMAL) CBC with auto differential (03/10/2025 2:10 PM CDT) WBC 6.87 3.80 - 9.90 K/cumm [facility] ([place]) Comment:Testing performed by : [facility] [address], Medical Office [facility] [address] [facility] [address], [place] [address] Hgb 12.8 11.9 - 15.5 g/dL [facility] ([place]) Comment:Testing performed by : [facility] [address], Medical Office [facility] [address], [place] [address] Hct 37.6 35.6 - 45.5 % [facility] ([place]) Comment:Testing performed by : [facility] [address], Medical Office [facility] [address], [place] [address] Plt 402(H) 150 - 400 K/cumm [facility] ([place]) Comment:Testing performed by : [facility] [address], Medical Office [facility] [address], [place] [address] MPV 9.7 9.1 - 12.3 fL [facility] ([place]) Comment:Testing performed by : [facility] [address], Medical Office [facility] [address], [place] [address] RBC 4.12 3.90 - 5.20 M/cumm [facility] ([place]) Comment:Testing performed by : [facility] [address], Medical Office [facility] [address], [place] [address] MCV 91.3 81.3 - 96.4 fL [facility] ([place]) Comment:Testing performed by : [facility] [address], Medical Office [facility] [address], [place] [address] MCH 31.1 27.1 - 33.3 pg [facility] ([place]) Comment:Testing performed by : [facility] [address], Medical Office [facility] [address], [place] [address] MCHC 34.0 32.3 - 35.7 g/dL [facility] ([place]) Comment:Testing performed by : [facility] [address], Medical Office [facility] [address], [place] [address] RDW CV 13.1 11.1 - 14.9 % [facility] ([place]) Comment:Testing performed by : [facility] [address], Medical Office [facility] [address], [place] [address] RDW SD 44.8 35.7 - 48.1 fL [facility] ([place]) Comment:Testing performed by : [facility] [address], Medical Office [facility] [address], [place] [address] Blood 03/10/2025 2:10 PM CDT 03/10/2025 2:17 PM CDT Fitz Clarke MD LAB BLOOD ORDERABLES Jacki gaviria Result [facility] ([place]) [address] [facility] Department [place] [address] * Comprehensive metabolic panel (03/10/2025 2:10 PM CDT) Sodium 138 135 - 145 mmol/L [facility] ([place]) Potassium, pl 3.7 3.3 - 4.9 mmol/L [facility] ([place]) Chloride 101 97 - 110 mmol/L [facility] ([place]) CO2 27 22 - 32 mmol/L [facility] ([place]) Anion gap 10 2 - 15 mmol/L [facility] ([place]) BUN 8 6 - 25 mg/dL [facility] ([place]) Creatinine 0.65 0.60 - 1.10 mg/dL [facility] ([place]) Glucose 114 70 - 199 mg/dL [facility] ([place]) Comment: Interpretive Data Fasting glucose >/= 126 mg/dl is diagnostic for diabetes. Fasting is defined as no caloric intake for at least 8 hours. Fasting glucose between 100 mg/dl to 125 mg/dl is diagnostic of prediabetes. In a patient with classic symptoms of hyperglycemia or hyperglycemic crisis, a random glucose >/= 200 mg/dl is diagnostic for diabetes. In the absence of unequivocal hyperglycemia, results should be confirmed by repeat testing. The classification and Diagnosis of Diabetes Diabetes Care 2021; 46: S19-S40. Current interpretive data was last revised 2022. Calcium 9.6 8.5 - 10.3 mg/dL [facility] ([place]) Bilirubin, total 0.3 0.1 - 1.2 mg/dL [facility] ([place]) Protein, pl 7.4 6.5 - 8.5 g/dL [facility] ([place]) Albumin 4.8 3.5 - 5.0 g/dL [facility] ([place]) Alk phos 49 40 - 130 Units/L [facility] ([place]) ALT 13 7 - 45 Units/L [facility] ([place]) AST 22 10 - 45 Units/L [facility] ([place]) Blood 03/10/2025 2:10 PM CDT 03/10/2025 2:20 PM CDT Fitz Clarke MD LAB BLOOD ORDERABLES Jacki gaviria Result [facility] [address] [facility] Department [place] [address] * Vaginitis panel Vaginal (03/09/2025 11:26 AM CDT) Pathologist [facility] Bacterial Vaginosis Not Detected Not Detected Comment:A negative result do es not preclude a possible infection. Results should be considered in conjunction with clinical presentation to determine the disease status. Kristine group Not Detected Not Detected [facility] Kristine glabrata/ krusei Not Detected Not Detected [facility] Trichomonas DNA Not Detected Not Detected [facility] Vaginal 03/09/2025 11:2 6 AM CDT 03/09/2025 2:21 PM CDT Narrative [facility] - 03/09/2025 4:34 PM CDT The [employer] Xpert Xpress MVP test detects DNA targets from anaerobic bacteria associated with bacterial vaginosis, Kristine species associated with vulvovaginal candidiasis, and Trichomonas vaginalis by nucleic acid amplification testing (NAAT). Results should be interpreted in conjunction with other clinical data. This test cannot be used to assess therapeutic success or failure because target nucleic acids may persist following antimicrobial therapy. This test has been cleared by the [place] Food and Drug Administration to aid in the diagnosis of vaginal infections in symptomatic women ages 14 and older. The performance characteristics of this test have been verified by the [facility]. Sammi KIRK LAB MICROBIOLOGY - GENER AL ORDERABLES Final Result Performing Organization Address City/[facility]/ZIP Co de Phone Number MATTRAE LOPEZ [address] [place] [address] [place] * Urine culture Urine, clean voided (03/09/2025 11:26 AM CDT) Report Final Report: No growth Comment:Testing performed by : [facility], [address] [place]., [address] Urine, clean voided 03/09/2025 11:26 AM CDT 03/09/2025 6:58 PM CDT Narrative [facility] - 03/10/2025 7:59 PM CDT Testing performed by [facility] Microbiology Laboratory ([phone]) Sammi KIRK LAB MICROBIOLOGY - GENER AL ORDERABLES Final Result [place] [address] [address] Department [place] [address] * POCT urinalysis dipstick (03/09/2025 11:06 AM CDT) Color, Urine, POC Yellow Clarity, ur, POC Clear Clear Glucose, ur, POC Negative Negative Bilirubin, ur, POC Negative Negative Ketones, ur, POC Negative Negative Specific [place], POC 1.015 1.003 - 1.030 Blood, ur, POC Negative Negative pH, ur, POC 5.5 5.0 - 8.0 Protein, ur, POC Negative Negative Urobilinogen, urine, POC 0.2 0.2 - 1.0 mg/dL Nitrite, ur, POC Negative Negative Leukocytes, ur, POC Negative Negative Lot Number [id number] Urine 03/09/2025 11:0 6 AM CDT Sammi KIRK POINT OF CARE TEST ORDER AUDELIA Final Result * Screening Mammogram W Raúl (05/04/2014 9:31 AM CDT) Anatomical Region Laterality Modality Breast N/A Mammography 05/04/2014 9:31 AM CDT Narrative 05/05/2014 11:45 AM CDT ALANIS HEBERT M.D. BRIE BENNETT, FINAL REPORT The radiology attending physician has personally reviewed this study, and has reviewed and/or edited this written report and agrees with it. ACC# Date Time Exam [id number] May 04, 2014 09:31:00 [facility] [place] [id number] Diag Mammogram Bilateral Technologist(s): Roseann Cummings; ; [id number] May 04, 2014 09:57:00 [facility] [place] [id number] Sono Breast (Unilateral) R [id number] May 04, 2014 09:31:00 [facility] [place] [id number] Bilateral Tomosynthesis Technologist(s): Roseann Cummings; ; EXAMINATION: BILATERAL FULL FIELD DIGITAL DIAGNOSTIC MAMMOGRAM WITH CAD, BILATERAL DIGITAL BREAST TOMOSYNTHESIS AND RIGHT BREAST SONOGRAM HISTORY: 38-year-old woman with a 3 to 4 week history of a nonpainful, palpable lump in the inner lower right breast. MAMMOGRAPHIC TECHNIQUE: Full field digital craniocaudal and mediolateral oblique views of both breasts were obtained. Computer Aided Detection was performed with [employer].3 version 9.3. Digital breast tomosynthesis was also performed and reviewed as a part of this examination. COMPARISON: 09/28/2012 BREAST PARENCHYMAL COMPOSITION: The breasts are extremely dense, which lowers the sensitivity of mammography. MAMMOGRAPHIC FINDINGS: No new suspicious abnormality is seen within either breast on mammogram. SONOGRAPHIC FINDINGS: Directed sonogram of the lower inner right breast was performed. In the the vicinity of the reported palpable abnormality of concern, there is normal appearing breast tissue without a focal abnormal solid or cystic lesion. Directed physical examination of the area of concern demonstrates no definite suspicious palpable abnormality at this time. IMPRESSION: 1. No suspicious mammographic or sonographic abnormality to correspond with the palpable area of concern in the RIGHT breast. OVERALL FINAL ASSESSMENT: BI-RADS Category 1: Negative. RECOMMENDATION: Annual screening mammography is recommended at age 40 Requested By: Dictated By: BRIE BENNETT on May 04 2014 10:28A This document has been electronically signed by: ALANIS HEBERT M.D. on May 05 2014 11:45A Procedure Note Provider, MD Leslie - 12/04/2016 ALANIS HEBERT M.D. BRIE BENNETT, FINAL REPORT The radiology attending physician has personally reviewed this study, and has reviewed and/or edited this written report and agrees with it. ACC# Date Time Exam [id number] May 04, 2014 09:31:00 [facility] [place] [id number] Diag Mammogram Bilateral Technologist(s): Roseann Cummings; ; [id number] May 04, 2014 09:57:00 [facility] [place] [id number] Sono Breast (Unilateral) R [id number] May 04, 2014 09:31:00 [facility] [place] [id number] Bilateral Tomosynthesis Technologist(s): Roseann Cummings; ; EXAMINATION: BILATERAL FULL FIELD DIGITAL DIAGNOSTIC MAMMOGRAM WITH CAD, BILATERAL DIGITAL BREAST TOMOSYNTHESIS AND RIGHT BREAST SONOGRAM HISTORY: 38-year-old woman with a 3 to 4 week history of a nonpainful, palpable lump in the inner lower right breast. MAMMOGRAPHIC TECHNIQUE: Full field digital craniocaudal and mediolateral oblique views of both breasts were obtained. Computer Aided Detection was performed with [employer], [employer] 1.3 version 9.3. Digital breast tomosynthesis was also performed and reviewed as a part of this examination. COMPARISON: 09/28/2012 BREAST PARENCHYMAL COMPOSITION: The breasts are extremely dense, which lowers the sensitivity of mammography. MAMMOGRAPHIC FINDINGS: No new suspicious abnormality is seen within either breast on mammogram. SONOGRAPHIC FINDINGS: Directed sonogram of the lower inner right breast was performed. In the the vicinity of the reported palpable abnormality of concern, there is normal appearing breast tissue without a focal abnormal solid or cystic lesion. Directed physical examination of the area of concern demonstrates no definite suspicious palpable abnormality at this time. IMPRESSION: 1. No suspicious mammographic or sonographic abnormality to correspond with the palpable area of concern in the RIGHT breast. OVERALL FINAL ASSESSMENT: BI-RADS Category 1: Negative. RECOMMENDATION: Annual screening mammography is recommended at age 40 Requested By: Dictated By: BRIE BENNETT on May 04 2014 10:28A This document has been electronically signed by: ALANIS HEBERT M.D. on May 05 2014 11:45A us Historical Provider MD LARRY MAMMO PROCEDURES Jacki l Result * (ABNORMAL) ThinPrep Pap, Reflex HPV all pth (09/25/2012 12:00 AM BOX MAKER PAPERBOARD) SOURCE: SEE NOTE [facility] HISTORICAL RESULTS Comment:Cervix, Endocervix CLINICAL INFORMATION: SEE NOTE [facility] HISTORICAL RESULTS Comment:Normal exam LMP SEE NOTE [facility] HISTORICAL RESULTS Comment:09/23/12 Previous Pap SEE NOTE [facility] HISTORICAL RESULTS Comment:07/10/11 Prev. Bx SEE NOTE [facility] HISTORICAL RESULTS Comment:INFORMATION NOT PROV IDED Pap, specimen adequacy SEE NOTE [facility] HISTORICAL RESULTS Comment: Satisfactory for evaluation. Endocervical/transformation zone component present. Pap, general categorization SEE NOTE(A) [facility] HISTORICAL RESULTS Comment:EPITHELIAL CELL ABNO RMALITY HPV interp SEE NOTE(A) [facility] HISTORICAL RESULTS Comment:Low Grade Squamous I ntraepithelial Lesion (LSIL) Lactobacillus species SEE NOTE [facility] HISTORICAL RESULTS Comment: This Pap test has been evaluated with computer assisted technology. Based on the cytology result, reflex High Risk HPV DNA testing was not performed. Suggest clinical correlation and follow-up as clinically appropriate [place] SEE NOTE [facility] HISTORICAL RESULTS Comment:[facility], CT(ASCP) Pathologist SEE NOTE [facility] HISTORICAL RESULTS Comment: Art Blackman M.D., Board Certified in Anatomic Pathology and Cytopathology. (electronic signature) Test performed at [facility] [address] [address] Director: NATALI THORNE DO [facility] 09/25/2012 Roseann Weber DISTILLATION OPERATOR LAB PATHOLOGY ORDERABLES F inal Result [facility] HISTORICAL RESULTS from Last 3 Months or Most Recently Relevant to Health Maintenance [facility] H[facility]/O Address: [address] [address] [facility] H[facility] Care Teams Fisher Net Relationship Specialty Start Date End Date No, Physician PCP - General 10/28/24 Arline Clifton PA [address] [place] [address] [place] [address] Physician Pathology Technologist Orthopedic Surgery 07/02/22
--- OUTSIDE RECORDS SUMMARY | 2025-05-27 11:05 | XMS_ITS | Clinical Summary ---
Author Organization [facility] Floyd galaviz Dipti Address [address] [address] Care Team Providers Care Tetryl Wringer Operator Name Role Phone Unavailable Primary Care Provider Unavailabl e Allergies No known active allergies Medications spironolactone (ALDACTONE) 100 mg tablet Take 100 mg by mouth daily. 02/13/2022 Active multivitamin (DAILY-KRYSTAL) tablet Take 1 Tablet by mouth daily. Active tamoxifen (NOLVADEX) 20 mg tablet Take 1 Tablet (20 mg) by mouth daily. 90 Tablet 3 05/27/2024 Active Active Problems No known active problems Encounters Date Type Department Care Team Description 04/26/2025 External Device Data [facility] ABSTRACTION Provider, Abstract 03/15/2025 External Device Data [facility] ABSTRACTION Provider, Abstract 03/02/2025 Telephone [facility] Oncology and Hematology - [facility] [address] [facility] [address] [address] Bruno Andre MD cancelled appt from Last 3 Months Family History Medical History Relation Name Comments No Known Problems Brother No Known Problems Child 1 No Known Problems Child 2 No Known Problems Father No Known Problems Mother Breast Cancer Paternal Grandmother Relation Name Status Comments Brother Alive Child 1 Alive Child 2 Alive Father Alive Mother Alive Paternal Grandmother Alive Social History Tobacco Use Types Packs/Day Years Used Date Smoking Tobacco: Never Smokeless Tobacco: Never Tobacco Cessation:Counseling Given: Not Answered Alcohol Use Standard Drinks/Week Comments Yes 0 (1 standard drink = 0.6 oz pur e alcohol) socially Comments Unknown Sex and Gender Information Value Date Recorded Sex Assigned at Not on file Legal Sex Female 3:07 PM CDT Gender Identity Not on file Sexual Orientation Not on file Last Filed Vital Signs Vital Sign Reading Time Taken Comments Blood Pressure 129/89 05/27/2024 1:07 PM CDT Pulse 77 05/27/2024 1:07 PM CDT Temperature 36.7 C (98.1 F) 05/27/2024 1:07 PM CDT Respiratory Rate 16 05/27/2024 1:07 PM CDT Oxygen Saturation 97% 05/27/2024 1:07 PM CDT Inhaled Oxygen Concentration - - Weight 61.8 kg (136 lb 3.2 oz) 05/27/2024 1:07 P M CDT Height 172.7 cm (5' 8) 04/07/2024 9:15 AM CDT Body Mass Index 20.71 04/07/2024 9:15 AM CDT Plan of Treatment Health Maintenance Due Date Last Done Comments HEPATITIS B VACCINES (1 of 3 - 19+ 3-dose series) 1996 06/15/2002, 05/05/2002 HPV/Cotest (21-29) 1998 DTAP/TDAP/TD VACCINES (1 - Tdap) 05/06/2002 05/05/20 02 CERVICAL CANCER SCREENING 11/05/2007 HPV/Cotest (30-65) 11/05/2007 PAP SMEAR 11/05/2007 BREAST CANCER SCREENING 2017 12/02/19 15, 05/04/2014, 05/04/2014 COLORECTAL SCREENING 2022 Colorectal Cancer Screening 2022 FIT-DNA Q 3 years 2022 FIT/FOBT Q 1 year 2022 Flex Sig/CT Colonography Q 5 years 2022 INFLUENZA VACCINE (#1) 2025 Insurance [employer] CHOICE POS II
--- OUTSIDE RECORDS SUMMARY | 2025-05-27 11:05 | XMS_ITS | Patient Health Record ---
Author Organization [facility] Address [address] [place] [address] Care Team Providers Care Barber Shop Manager Name Role Phone Trav Wilson Unavailable [phone] Reason For Referral No Information Problems Problem Type SNOMED Code ICD Code Onset Dates Problem Status W/U Status Risk Notes Problem Spinal enthesopathy (89171904) Spinal enthesopathy, lumbar region (M46.06) Active confirmed Problem Lumbar radiculopathy (907196754) Radiculopathy, lumbar region (M54.16) Active confirmed Problem Enthesopathy (76153708) Peripheral Enthesopathy NOS (726.90) Active confirmed Problem 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
== END 2025-05-27 10:27 | disposition home or self-care (01) ==
PROVIDERS: Visit Provider Physician Assistant Surgical
DX: R92.8 Other abnormal and inconclusive findings on diagnostic imaging of breast (principal); Z90.13 Acquired absence of bilateral breasts and nipples; Z85.3 Personal history of malignant neoplasm of breast
CPT/HCPCS: 76642

== ENCOUNTER 2025-07-11 09:36 | Outpatient (CLI) | payer OTHER, SELFPAY ==
--- NOTE | ~2025-07-11 | MR_ITS ---
MR breast BI wo/w con 07/11/2025 15:25 STRIP STAMP STRAIGHTENER INDICATION: Malignant neoplasm of the left breast. History of double mastectomy. TECHNIQUE: MRI of the breasts perform using standard protocol pre-and post IV contrast with the following sequences: Axial T2 STIR, axial T1, axial vibrant T1 with fat suppression precontrast and multiphasic postcontrast. 13 cc MultiHance administered intravenously. COMPARISON: Comparison to multiple prior studies sequentially, with oldest reviewed study dated 03/19/2022. FINDINGS: There are no abnormalities on the precontrast sequences. There is mild background parenchymal enhancement. No enhancing lesions following contrast administration. No areas of enhancement meeting threshold criteria on CAD analysis. No evidence of signal abnormalities in the axillary or internal mammary node distributions. LEFT BREAST: No signal abnormalities on precontrast sequences. There is mild background parenchymal enhancement. No enhancing lesions following contrast administration. No areas of enhancement meeting threshold criteria on CAD analysis. No evidence of signal abnormalities in the axillary or internal mammary node distributions.] IMPRESSION: 1: Right breast: Negative. No evidence of malignancy. BI-RADS category 1. Recommend annual mammography follow-up. 2: Left breast: Negative. No evidence of malignancy. BI-RADS category 1. Recommend annual mammography follow-up. Follow-up MRI may be useful for supplementing mammographic evaluation as clinically indicated. Reviewed, dictated and finalized at location I. P STAMP STRAIGHTENER IMPRESSION: 1: Right breast: Negative. No evidence of malignancy. BI-RADS category 1. Recommend annual mammography follow-up. 2: Left breast: Negative. No evidence of malignancy. BI-RADS category 1. Re commend annual mammography follow-up. Follow-up MRI may be useful for supplementing mammographic evaluation as clinic ally indicated.
--- OUTSIDE RECORDS SUMMARY | 2025-07-11 10:28 | XMS_ITS | Clinical Summary ---
Author Organization [facility] Address [address] [place] [address] Phone Care Team Providers Care Building Performance Specialist Name Role Phone Pavan Arelysingh Zamorano APRN, BLEACH CHLORINATOR Primary Care Provider [phone] Allergies No known active allergies Medications spironolactone (ALDACTONE) 100 MG Tablet Take 100 mg by mouth daily. Active multi-vitamins (Daily Vites) Tablet Take 1 Tablet by mouth daily. Active cholecalciferol (D2000 Ultra Strength) 2000 UNIT Capsule Take 2,000 Units by mouth. 022 Active MAGNESIUM GLYCINATE PO Take by mouth. Ac tive amphetamine-dext roamphetamine (ADDERALL) 20 MG TabletIndication s:Attention Deficit Hyperactivity Disorder Take 1 Tablet by mouth daily. .May take a 1/2 tab as needed in the afternoon. Indications: ADHD - Attention Deficit Hyperactivity Disorder 45 Tablet 025 Active venlafaxine (EFFEXOR-XR) 37.5 MG CAPSULE SR 24 HRIndications:Pr emenstrual Dysphoric Disorder TAKE 1 CAPSULE BY MOUTH DAILY. INDICATIONS: PREMENSTRUAL DISORDER WITH A STATE OF UNHAPPINESS 90 Capsule 025 Active venlafaxine (EFFEXOR-XR) 37.5 MG CAPSULE SR 24 HRIndications:Pr emenstrual Dysphoric Disorder Take 1 Capsule by mouth daily. Indications: Premenstrual Disorder with a State of Unhappiness 90 Capsule 025 2024 Discontinued amphetamine-dext roamphetamine (ADDERALL) 20 MG TabletIndication s:Attention Deficit Hyperactivity Disorder Take 1 Tablet by mouth daily. .May take a 1/2 tab as needed in the afternoon. Indications: ADHD - Attention Deficit Hyperactivity Disorder 45 Tablet 025 2024 Discontinued(R eorder) Active Problems Problem Noted Date Diagnosed Date Biceps tendinitis on right 06/15/2022 Overview (03/25/2025): Added automatically from request for surgery [id number] Impingement syndrome of right shoulder Overview (03/25/2025): Added automatically from request for surgery [id number] Arthritis of right acromioclavicular joint 06/15 Overview (03/25/2025): Added automatically from request for surgery [id number] Family history of malignant neoplasm of breast 0 09/28/2012 Overview (03/25/2025): Family history of breast cancer in female Fibrocystic breast changes 09/28/2012 Overview (03/25/2025): Fibrocystic breast changes Gout 11/02/2001 Overview (03/25/2025): Gout Encounters Date Type Department Care Team Description 06/24/2025 Travel 06/15/[address] [facility] [address] [place] [id number] Arely Browne APRN, BLEACH CHLORINATOR Medication Refill 06/14/[address] [facility] [address] [place] [id number] Arely Browne APRN, BLEACH CHLORINATOR Medication Refill 05/05/[address] [facility] [facility] [address] [place] [phone] Arely Browne APRN, BLEACH CHLORINATOR Medication Refill from Last 3 Months Family History Medical [...] 03/25/2025 7:34 AM CDT Plan of Treatment Health Maintenance [...] Respiratory Syncytial Virus (RSV) Immunization (Adult) (1 -dose 75+ series) 2052 Discussion re Starting/Frequency of [...] patient's age to complete this topic Insurance [employer] Member Subscriber Plan / Payer (Ef fective 2019-Present) Name:Martin Cortez Relation to Subscriber:Spouse Name:JANESRACHAELIVELISSE AMBRIZ Date of :1972 (Home) Address: [address] [place] [address] Payer ID:[id number] (NAIC) Type:Not on file Address: [place] [phone] Care Teams Building Performance Specialist Relationship Specialty Start Date End Date Arely Browne, AUTHORIZATION REP, BLEACH CHLORINATOR [address] [place] [address] PCP - General Certified Nurse Practitioner 03/25/25
--- OUTSIDE RECORDS SUMMARY | 2025-07-11 10:28 | XMS_ITS | Clinical Summary ---
Author Organization [facility] [address] [place] [place] Address [address] [place] [id number] Care Team Providers Care Air Traffic Supervisor Name Role Phone EtienneArlineVerónica PA Unavailable [phone] No, Physician Primary Care Provider [phone] Fitz Clarke MD Unavailable [phone] Allergies No known active allergies Medications dextroamphetami [...] mg total) by mouth daily 4 Active venlafaxine XR (EFFEXOR-XR) 37.5 mg 24 hr capsule Take 1 capsule (37.5 mg total) by mouth daily 5 Active Active Problems Problem Noted Date Diagnosed Date Superior glenoid labrum lesion of right shoulder 06/15/2022 Overview (06/15/2022): Added automatically from request for surgery [id number] Arthritis of right acromioclavicular joint 06/15 Overview (06/15/2022): Added automatically from request for surgery [id number] Biceps tendinitis on right 06/15/2022 Overview (06/15/2022): Added automatically from request for surgery [id number] Impingement syndrome of right shoulder 2 Overview (06/15/2022): Added automatically from request for surgery [id number] Mass of breast 10/02/2012 Family history of malignant neoplasm of breast 0 09/28/2012 Overview (11/14/2016): Family history of breast cancer in female Fibrocystic breast changes 09/28/2012 Overview (11/15/2016): Fibrocystic breast changes Gout 11/02/2001 Overview (11/15/2016): Gout Encounters Date Type Department Care Team Description 06/09/2025 3:15 PM CDT Office Visit [facility] Oncology [address] [place] [address] B Mariusz [address] [place] [phone] Maggy Ortiz, AIMEE Invasive ductal carcinoma of left breast (HCC) (Primary Dx); Malignant neoplasm of female breast, unspecified estrogen receptor status, unspecified laterality, unspecified site of breast (HCC) 06/09/2025 2:45 PM CDT Lab [facility] [address] [facility] [address] [place] [address] Invasive ductal carcinoma of left breast (HCC); Malignant neoplasm of female breast, unspecified estrogen receptor status, unspecified laterality, unspecified site of breast (HCC) from Last 3 Months Immunizations Immunization Administration Dates Next Due Hep B, Adolescent or Pediatric 06/15/2002,2001 TD Preservative Free 05/05/2002 Surgical History Surgery Date Site/Laterality Comments OTHER SURGICAL HISTORY (BELEM HAS VASECTOMY) WISDOM TOOTH EXTRACTION Medical History [...] on file 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 Gender Identity Not on file Sexual Orientation Not on file Last Filed Vital Signs Vital Sign Reading Time Taken Comments Blood Pressure 124/75 06/09/2025 2:47 PM CDT Pulse 79 06/09/2025 2:47 PM CDT Temperature 36.3 C (97.3 F) 06/09/2025 2:47 PM CDT Respiratory Rate 20 06/09/2025 2:47 PM CDT Oxygen Saturation 99% 06/09/2025 2:47 PM CDT Inhaled Oxygen Concentration - - Weight 64.5 kg (142 lb 3.2 oz) 06/09/2025 2:47 P M CDT Height 172.7 cm (5' 8) 03/10/2025 2:21 PM CDT Body Mass Index 21.62 03/10/2025 2:21 PM CDT Plan of Treatment [...] 06/15/2002, 002 Medical Devices Implanted Type Area Stretcher Helper Device Identifier Shelf Expiration Date Model / Serial / Lot [employer] Set Implant Ar[employer]rex Fibertak Biceps Sterile Latex Free [id number] - [id number] Implanted:Qty: 1 on 07/02/2022 by Zachary Cohn MD at [facility] Right: Shoulder [employer] 04/10/2027 AR-3670 / / [id number] Procedures Procedure Name Priority Date/Time Associated Diagnosis Comments DIFFERENTIAL AUTO Routine 06/09/2025 2:4 0 PM CDT Invasive ductal carcinoma of left breast (HCC) Malignant neoplasm of female breast, unspecified estrogen receptor status, unspecified laterality, unspecified site of breast (HCC) CBC WITH AUTO DIFFERENTIAL Routine 06/09/2025 2:40 PM CDT Invasive ductal carcinoma of left breast (HCC) Malignant neoplasm of female breast, unspecified estrogen receptor status, unspecified laterality, unspecified site of breast (HCC) EGFR Routine 06/09/2025 2:25 PM CDT Invasive ductal carcinoma of left breast (HCC) Malignant neoplasm of female breast, unspecified estrogen receptor status, unspecified laterality, unspecified site of breast (HCC) COMPREHENSIVE METABOLIC PANEL Routine 06/09/2025 2:25 PM CDT Invasive ductal carcinoma of left breast (HCC) Malignant neoplasm of female breast, unspecified estrogen receptor status, unspecified laterality, unspecified site of breast (HCC) SCREENING MAMMOGRAM W RAÚL Routine 05/04/2014 9:31 AM CDT THINPAP, REFLEX HPV ALL PTH Routine 09/25/2012 12:00 AM 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 OPERATOR from Last 3 Months or Most Recently Relevant to Health Maintenance Results * (ABNORMAL) Differential, auto (06/09/2025 2:40 PM CDT) Neutrophil abs 4.76 1.50 - 6.50 K/cumm [facility] ([place]) Comment:Testing performed by : [facility] [address], Medical Office [facility] [address], [place] [address] Imm gran abs 0.00 0.00 - 0.10 K/cumm [facility] ([place]) Comment:Testing performed by : [facility] [address], Medical Office [facility] [address], [place] [address] Lymphocyte abs 2.05 0.80 - 3.30 K/cumm [facility] ([place]) Comment:Testing performed by : [facility] [address], Medical Office [facility] [address], [place] [address] Monocyte abs 0.63 0.20 - 0.80 K/cumm [facility] ([place]) Comment:Testing performed by : [facility] [address], Medical Office [facility] [address], [place] [address] Eosinophil abs 0.27 0.00 - 0.50 K/cumm [facility] ([place]) Comment:Testing performed by : [facility] [address], Medical Office [facility] [address], [place] [address] Basophil abs 0.11(H) 0.00 - 0.10 K/cumm [facility] ([place]) Comment:Testing performed by : [facility] [address], Medical Office [facility] [address], [place] [address] Neutrophil pct 60.8 % [facility] ([place]) Comment: Interpretive Data Percent cell count reference ranges are not reported, since discordance with absolute values may lead to misinterpretation of CBC data. Current Interpretive Data was last revised on 2022. Testing performed by: [facility] [address], Medical Office [address], [place] [address] Imm gran pct 0.0 % [facility] ([place]) Comment: Interpretive Data Percent cell count reference ranges are not reported, since discordance with absolute values may lead to misinterpretation of CBC data. Current Interpretive Data was last revised on 2022. Testing performed by: [facility] [address], Medical Office [address], [place] [address] Lymphocyte pct 26.2 % [facility] ([place]) Comment: Interpretive Data Percent cell count reference ranges are not reported, since discordance with absolute values may lead to misinterpretation of CBC data. Current Interpretive Data was last revised on 2022. Testing performed by: [facility] [address], Medical Office [address], [place] [address] Monocyte pct 8.1 % [facility] ([place]) Comment: Interpretive Data Percent cell count reference ranges are not reported, since discordance with absolute values may lead to misinterpretation of CBC data. Current Interpretive Data was last revised on 2022. Testing performed by: [facility] [address], Medical Office [address], [place] [address] Eosinophil pct 3.5 % [facility] ([place]) Comment: Interpretive Data Percent cell count reference ranges are not reported, since discordance with absolute values may lead to misinterpretation of CBC data. Current Interpretive Data was last revised on 2022. Testing performed by: [facility] [address], Medical Office [address], [place] [address] Basophil pct 1.4 % [facility] ([place]) Comment: Interpretive Data Percent cell count reference ranges are not reported, since discordance with absolute values may lead to misinterpretation of CBC data. Current Interpretive Data was last revised on 2022. Testing performed by: [facility] [address], Medical Office [address], [place] [address] Blood 06/09/2025 2:40 PM CDT 06/09/2025 2:43 PM CDT Maggy Ortiz NP LAB BLOOD ORDERABLES Final Result [facility] ([place] [address] [facility] [place] [address] * CBC with auto differential (06/09/2025 2:40 PM CDT) WBC 7.82 3.80 - 9.90 K/cumm [facility] ([place]) Comment:Testing performed by : [facility] [address], Medical Office [facility] [address], [place] [address] Hgb 12.9 11.9 - 15.5 g/dL [facility] ([place]) Comment:Testing performed by : [facility] [address], Medical Office [facility] [address], [place] [address] Hct 37.8 35.6 - 45.5 % [facility] ([place] Comment:Testing performed by : [facility] [address], Medical Office [facility] [address], [place] [address] Plt 383 150 - 400 K/cumm [facility] ([place]) Comment:Testing performed by : [facility] [address], Medical Office [facility] [address], [place] [address] MPV 10.0 9.1 - 12.3 fL [facility] ([place]) Comment:Testing performed by : [facility] [address], Medical Office [facility] [address], [place] [address] RBC 4.16 3.90 - 5.20 M/cumm [facility] ([place]) Comment:Testing performed by : [facility] [address], Medical Office [address], [place] [address] MCV 90.9 81.3 - 96.4 fL [facility] ([place]) Comment:Testing performed by : [facility] [address], Medical Office [address], [place] [address] MCH 31.0 27.1 - 33.3 pg [facility] ([place]) Comment:Testing performed by : [facility] [address], Medical Office [address], [place] [address] MCHC 34.1 32.3 - 35.7 g/dL [facility] ([place]) Comment:Testing performed by : [facility] [address], Medical Office [address], [place] [address] RDW CV 13.0 11.1 - 14.9 % [facility] ([place]) Comment:Testing performed by : [facility] [address], Medical Office [address], [place] [address] RDW SD 43.7 35.7 - 48.1 fL [facility] ([place]) Comment:Testing performed by : [facility] [address], Medical Office [address], [place] [address] Blood 06/09/2025 2:40 PM CDT 06/09/2025 2:43 PM CDT Maggy Ortiz ROCKET PROPELLANT PLANT SUPERVISOR LAB BLOOD ORDERABLES Final Result [facility] Department [place] [address] * eGFR (06/09/2025 2:25 PM CDT) eGFR >90 >=60 mL/min/1. 73 [...] was last reviewed 2021. Testing performed by: [place], [address] Blood 06/09/2025 2:25 PM CDT 06/09/2025 2:51 PM CDT Maggy Ortiz ROCKET PROPELLANT PLANT SUPERVISOR LAB BLOOD ORDERABLES Final Result [facility] [address] [facility] Department [place] [address] * Comprehensive metabolic panel (06/09/2025 2:25 PM CDT) Sodium 140 135 - 145 mmol/L Comment:Testing performed by : [facility], [place], [address] Potassium, pl 4.0 3.3 - 4.9 mmol/L [facility] ([place]) Comment:Testing performed by : [facility], [place], [address] Chloride 101 97 - 110 mmol/L [facility] ([place]) Comment:Testing performed by : [facility], [place], [address] CO2 31 22 - 32 mmol/L [facility] ([place]) Comment:Testing performed by : [facility], [place], [address] Anion gap 8 2 - 15 mmol/L [facility] Comment:Testing performed by : [facility], [place], [address] BUN 10 6 - 25 mg/dL [facility] ([place]) Comment:Testing performed by : [facility], [place], [address] Creatinine 0.72 0.60 - 1.10 mg/dL [facility] ([place]) Comment:Testing performed by : [facility], [place], [address] Glucose 87 70 - 199 mg/dL [facility] ([place]) Comment: Interpretive Data Fasting glucose >/= 126 [...] Current interpretive data was last revised 2022. Testing performed by: [facility], [place], [address] Calcium 9.9 8.5 - 10.3 mg/dL [facility] ([place]) Comment:Testing performed by : [place], [address] Bilirubin, total 0.3 0.1 - 1.2 mg/dL [facility] ([place]) Comment:Testing performed by : [facility], [place], [address] Protein, pl 7.2 6.5 - 8.5 g/dL [facility] ([place]) Comment:Testing performed by : [facility], [place], [address] Albumin 4.8 3.5 - 5.0 g/dL [facility] ([place]) Comment:Testing performed by : [facility], [place], [address] Alk phos 43 40 - 130 Units/L [facility] ([place]) Comment:Testing performed by : [facility], [place], [address] ALT 16 7 - 45 Units/L [facility] ([place]) Comment:Testing performed by : [place], [address] AST 27 10 - 45 Units/L [facility] ([place]) Comment:Testing performed by : [facility], [place], [address] Blood 06/09/2025 2:25 PM CDT 06/09/2025 2:51 PM CDT us Maggy Ortiz NP LAB BLOOD ORDERABLES Final Result [facility] [address] [facility] Department [place] [address] * Screening Mammogram W Raúl (05/04/2014 9:31 AM CDT) Anatomical Region Laterality Modality Breast N/A Mammography 05/04/2014 9:31 AM CDT Narrative 05/05/2014 11:45 AM CDT ALANIS HEBERT M.D. BRIE BENNETT, FINAL REPORT The radiology attending physician has personally reviewed this study, and has reviewed and/or edited this written report and agrees with it. ACC# Date Time Exam [id number] May 04, 2014 09:31:00 [facility] [id number] Diag Mammogram Bilateral Technologist(s): Roseann Cummings; ; [id number] May 04, 2014 09:57:00 [facility] [id number] Sono Breast (Unilateral) R [id number] May 04, 2014 09:31:00 [facility] [id number] Bilateral Tomosynthesis Technologist(s): Roseann Cummings; ; EXAMINATION: [...] obtained. Computer Aided Detection was performed with [employer] version 9.3. Digital breast tomosynthesis was also [...] age 42 Requested By: Dictated By: BRIE BENNETT, on May 04 2014 10:28A This document has been electronically signed by: ALANIS HEBERT M.D. on May 05 2014 11:45A Procedure Note Provider, MD Leslie - 12/04/2016 ALANIS HEBERT M.D. BRIE BENNETT, FINAL REPORT The radiology attending physician has personally reviewed this study, and has reviewed and/or edited this written report and agrees with it. ACC# Date Time Exam [id number] May 04, 2014 09:31:00 [facility] [id number] Diag Mammogram Bilateral Technologist(s): Roseann Cummings; ; [id number] May 04, 2014 09:57:00 [facility] [id number] Sono Breast (Unilateral) R [id number] May 04, 2014 09:31:00 [facility] [id number] Bilateral Tomosynthesis Technologist(s): Roseann Cummings; ; EXAMINATION: [...] obtained. Computer Aided Detection was performed with [employer] version 9.3. 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 (electronic signature) Test performed at [facility] [address] [address] Director: NATALI THORNE DO [facility] 09/25/2012 Roseann Weber NP LAB PATHOLOGY ORDERABLES F inal Result [facility] HISTORICAL RESULTS from Last 3 Months or Most Recently Relevant to Health Maintenance Insurance [facility] HMO [facility] Care Teams Air Traffic Supervisor Relationship Specialty Start Date End Date No, Physician PCP - General 10/28/24 Arline Clifton PA [address] [place] [address] [address] [place] [address] Physician Race Car Driver Orthopedic Surgery 07/02/22 Fitz Clarke MD [address] [place] [address] [address] [place] [address] Consulting Physician Medical Oncology 06/01/25
--- OUTSIDE RECORDS SUMMARY | 2025-07-11 10:28 | XMS_ITS | Clinical Summary ---
Author Organization [facility] Address [address] [place] [address] Care Team Providers Care Meat Counter Clerk Name Role Phone Unavailable Primary Care Provider [...] Encounters Date Type Department Care Team Description 06/01/2025 External Device Data [facility] Provider, Abstract 05/31/2025 External Device Data [facility] Provider, Abstract 04/26/2025 External Device Data [facility] Provider, Abstract from Last 3 Months Family History Medical [...]
== END 2025-07-11 09:37 | disposition home or self-care (01) ==
PROVIDERS: Visit Provider Surgery
DX: C50.912 Malignant neoplasm of unspecified site of left female breast (principal); D05.12 Intraductal carcinoma in situ of left breast; Z90.13 Acquired absence of bilateral breasts and nipples
CPT/HCPCS: 77049; A9577; C8908